=== PATIENT | female | born 1940 | race Caucasian/White ===

== ENCOUNTER 2019-12-16 22:56 | Emergency (ER) | payer MEDICARE, SELFPAY ==
--- NOTE | ~2019-12-16 | XR_ITS ---
EXAMINATION: XR chest 2V DATE: 12/16/2019 23:21 INDICATION: Cough TECHNIQUE: PA and lateral views of the chest are obtained. COMPARISON: 07/30/2017 FINDINGS: The lungs are free of acute opacities. There is no pleural effusion or pneumothorax. The ca rdiomediastinal silhouette is normal. There are bridging osteophytes at multiple levels in the spine, consistent with diffuse idiopathic skeletal hyperostosis (DISH). IMPRESSION: 1. No acute cardiopulmonary abnormality. Reviewed, dictated and finalized at location A. NICAL SALES SUPPORT SPECIALIST
[2019-12-16 22:59] VITALS: BP 146/64; PULSE 64; RESP 16; TEMP 36.4; O2SAT 97
--- NOTE | 2019-12-16 23:06 | ED.GENADULT ---
HPI - General Adult General Chief complaint: Upper Respiratory Infection Stated complaint: SEVERE COUGH Time Seen by Provider: 12/16/19 23:06 Source: patient Mode of arrival: ambulatory Limitations: no limitations History of Present Illness HPI narrative: Patient presents for evaluation of cough. Patient reports a 3-week history of worsening productive cough, white sputum production. She denies fever, shortness of breath, chest pain, leg swelling. She reports that she was placed on antibiotics by her primary care provider, finished course of those, and has continued with Delsym and supportive care without much improvement. Patient denies any wheezing. No history of lung disease. She does not smoke. She denies any pain. Patient with numerous recent sick contacts. is not ill with similar symptoms. Related Data Home Medications Medication Instructions Recorded Confirmed atorvastatin 20 mg tablet 20 mg PO DAILY 11/29/19 calcium citrate 250 mg PO DAILY 11/29/19 cetirizine 10 mg tablet 5 mg PO DAILY PRN 11/29/19 cholecalciferol (vitamin D3) 10 400 unit PO DAILY 11/29/19 mcg (400 unit) capsule furosemide 40 mg tablet 40 mg PO BID 11/29/19 insulin detemir U-100 100 unit/mL 100 unit SUB-Q DAILY 11/29/19 subcutaneous solution [id number] 1 tablet PO DAILY 11/29/19 Allergies Allergy/AdvReac Type Severity Reaction Status Date / Time No Known Allergies Allergy Verified 12/16/19 23:14 Review of Systems Review of Systems: Narrative: CONSTITUTIONAL: Denies fever, chills, or sweats. ENT: Reports rhinorrhea, congestion, denies sore throat or otalgia CARDIOVASCULAR: Denies chest pain, palpitations, or edema. RESPIRATORY: Reports cough, denies shortness of breath GASTROINTESTINAL: Denies abdominal pain, nausea, vomiting, or diarrhea. MUSCULOSKELETAL: Denies back pain, joint pain, or myalgia. NEUROLOGIC: Denies weakness. [facility] Past Medical History Medical History Bronchitis CKD (chronic kidney disease), stage II Knee pain, left Tachycardia Social History Social History Smoking status: Never smoker Alcohol intake: never Gender identity (if verbalized by the patient): Female Exam Narrative: Exam Narrative: GENERAL: Well-appearing, well-nourished, and in no acute distress. HEAD: Normocephalic, atraumatic. EYES: PERRLA and EOMI. ENT: Nares clear, no rhinorrhea or epistaxis. Mucous membranes moist. NECK: Supple. CHEST: No respiratory distress, no tachypnea. No increased work of breathing. Faint crackles left middle lung. Right lung sounds are clear. No wheezing. HEART: Regular rate and rhythm. No murmur heard. Normal peripheral pulses. ABDOMEN: Soft, nontender, nondistended, normal active bowel sounds. EXTREMITIES: Normal range of motion. No edema. SKIN: Warm, dry, no rash. NEURO: No focal deficits. Alert and oriented x3 Course Course Emergency Course: Patient without evidence of severe respiratory process. Chest x-ray shows no acute cardiopulmonary abnormality. Patient was given a DuoNeb, given steroids with some improvement in her symptoms. We will start patient on steroids given bronchitis type symptoms. Advised to put a humidifier in her room, try drinks with honey in it to help with cough. Patient without any other concerning features such as chest pain, shortness of breath. She was advised to discussed her symptoms with her primary care provider at a follow-up appointment. She was then discharged home. Vital Signs Vital signs: Vital Signs Temperature 36.4 C L 12/16/19 22:59 Pulse Rate 64 12/16/19 22:59 Respiratory Rate 16 12/16/19 22:59 Blood Pressure 146/64 H 12/16/19 22:59 Pulse Oximetry 97 12/16/19 22:59 Temperature 36.4 C L 12/16/19 22:59 Pulse Rate 59 L 12/16/19 23:52 Respiratory Rate 16 12/16/19 23:52 Blood Pressure 146/64 H
[2019-12-16 23:36] LABS: Basophils Absolute Auto 0.1 K/mm3 (0.0-0.1); Basophils Percent Auto 0.9 % (0.2-1.2); Eosinophils Absolute Auto 0.3 K/mm3 (0-0.3); Eosinophils Percent Auto 4.8 % (0-4.4); Hematocrit 38.9 % (37.0-47.0); Hemoglobin 12.3 g/dL (12.0-15.0); Immature Granulocyte Absolute 0.01 K/mm3 (0.00-0.031); Immature Granulocyte Percent A 0.1 % (0-0.5); Lymphocytes Absolute Auto 1.78 K/mm3 (0.9-3.2); Lymphocytes Percent Auto 26.6 % (18.3-44.2); Mean Corpuscular HGB Conc 31.6 g/dl (32-36); Mean Corpuscular Hemoglobin 27.8 pg (26-34); Mean Platelet Volume 9.6 fl (7.4-10.4); Monocytes Absolute Auto 0.6 K/mm3 (0.1-0.6); Monocytes Percent Auto 8.5 % (2.6-8.5); Neutrophils Percent Auto 59.1 % (45.5-73.1); Platelet Count Result 153 k/mm3 (150-375); Red Blood Count 4.42 M/mm3 (4.2-5.4); Red Cell Distribution Width 12.6 % (11.5-14.5); White Blood Count 6.7 K/mm3 (4.5-10.0)
[2019-12-16] MEDS: ALBUTEROL SULFATE NEB 2.5 MG/0.5 ML INH 5 MG INHALATION (23:39)
[2019-12-16 23:41] VITALS: PULSE 58; RESP 16
[2019-12-16] MEDS: IPRATROPIUM BR 0.02% INH SOLN 0.5 MG/2.5 ML VIAL INHALATION (23:49)
[2019-12-16 23:52] VITALS: PULSE 59; RESP 16
[2019-12-16 23:52] LABS: Blood Urea Nitrogen 25 mg/dL (7-17); Calcium 9.8 mg/dL (8.4-10.2); Carbon Dioxide 25 mmol/L (22-30); Chloride 99 mmol/L (98-107); Estimated CRCL calculation 38 ml/min; Estimated Glomerular Filt Rate 36; Glucose 149 mg/dL (65-105); Potassium 3.5 mmol/L (3.4-5.0); Sodium 139 mmol/L (137-145)
== END 2019-12-17 00:10 | disposition home or self-care (01) ==
PROVIDERS: Emergency Provider Emergency Medicine; PCP Internal Medicine
DX: J40 Bronchitis, not specified as acute or chronic (principal); N18.3 Chronic kidney disease, stage 3 (moderate)
CPT/HCPCS: 36415; 71046; 80048; 85025; 87804; 94640; 99283

== ENCOUNTER 2019-12-30 08:11 | Inpatient (IN) | payer MEDICARE, SELFPAY ==
[2019-12-30] VITALS (13 sets, daily range): BP systolic 111–191; BP diastolic 40–81; PULSE 52–73; RESP 16–56; TEMP 36.4–36.7; O2SAT 96–100; BMI 41.4
--- NOTE | ~2019-12-30 | XR_ITS ---
EXAMINATION: XR chest 2V DATE: 12/30/2019 10:29 INDICATION: Transient alteration of awareness TECHNIQUE: Frontal and lateral views of the chest are obtained COMPARISON: 12/16/2019 FINDINGS: The lungs are free of acute opacities. There is no pleural effusion or pneumothorax. The ca rdiomediastinal silhouette is normal. There are bridging osteophytes at multiple levels in the spine, consistent with diffuse idiopathic skeletal hyperostosis (DISH). Surgical clips in the right upper q uadrant are likely from prior cholecystectomy. 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 IMPRESSION: 1. No acute cardiopulmonary abnormality. Reviewed, dictated and finalized at location A. RGLASSER
--- NOTE | ~2019-12-30 | CT_ITS ---
EXAMINATION: CT brain wo con EXAM DATE: 12/30/2019 09:15 INDICATION: Syncope. Temporary change in awareness. Fall, loss of consciousness. TECHNIQUE: Spiral CT of the head was performed without contrast. Axial, coronal and sagittal images were reviewed. The dose-length product (DLP) for this examination was 605.33 mGy-cm. The exposure w as tailored according to patient size, and iterative reconstruction (ASIR) was used as additional dos e reduction technique. Comparison is made to prior examination from 04/06/2017. FINDINGS: There is no acute intraparenchymal hemorrhage. No evidence of intraparenchymal brain mass lesion. No evidence of acute infarction. There is no mass effect or midline shift. The ventricles are normal in size. There are no extra-axial collections. There are no acute calvarial fractures. P atient has had bilateral ocular lens surgery. There is bilateral carotid siphon arterial sclerosis. M ild cerebral atrophy. Soft tissue is unremarkable. The visualized sinuses and mastoid air cells are well aerated. IMPRESSION: 1. No acute intracranial findings. Reviewed, dictated and finalized at location B. MOSPRAY OPERATOR
--- NOTE | ~2019-12-30 | US_ITS ---
EXAMINATION: US venous doppler LE EXAM DATE: 12/30/2019 12:14 INDICATION: Pulmonary embolism. TECHNIQUE: Multiple grayscale, color flow and Doppler images of the lower extremity deep venous syste ms bilaterally were obtained and reviewed. Comparison is made to prior examination from 05/01/2015. FINDINGS: Right side: The right common femoral, femoral and profunda veins demonstrate normal color flow, respi ratory variation, augmentation and compressibility. Compressibility, color flow confirmed within the right popliteal, posterior tibial, peroneal, and greater saphenous veins. Left side: The left common femoral, femoral and profunda veins demonstrate normal color flow, respira tory variation, augmentation and compressibility. Compressibility, color flow confirmed within the l eft popliteal, posterior tibial, peroneal, and greater saphenous veins. IMPRESSION: 1. No lower extremity deep venous thrombosis bilaterally. Reviewed, dictated and finalized at location B. R RUNNER
--- NOTE | ~2019-12-30 | US_ITS ---
EXAMINATION: US carotid duplex BI DATE: 12/31/2019 14:50 INDICATION: Syncope. TECHNIQUE: Grayscale, color Doppler, and pulsed Doppler images of the cervical carotid arteries were obtained. The degree of vessel stenosis is placed in one of the following categories: normal, <50%, 5 0-69%, >=70% but less than near-occlusion, near-occlusion, or total occlusion. Note that percent sten osis relative to normal distal artery lumen diameter is indirectly measured from velocity measurement s as described by Denny, et al. Radiology 2003; 229:340-346. COMPARISON: None. FINDINGS: RIGHT: The right common carotid artery (CCA) peak systolic velocity (PSV) is 103 cm/s. The right internal ca rotid artery (ICA) PSV is 109 cm/s. The right ICA end-diastolic velocity (EDV) is 23 cm/s. The right ICA/CCA PSV ratio is 1.1. Grayscale and color Doppler images yield an estimate of <50% diameter reduc tion from plaque in the ICA. There is antegrade flow in the right vertebral artery. LEFT: The left CCA PSV is 89 cm/s. The left ICA PSV is 126 cm/s. The left ICA EDV is 29 cm/s. The left ICA/ CCA PSV ratio is 1.4. Grayscale and color Doppler images yield an estimate of <50% diameter reduction from plaque in the ICA. There is antegrade flow in the left vertebral artery. IMPRESSION: 1. <50% stenosis in the right internal carotid artery. 2. <50% stenosis in the left internal carotid artery. Reviewed, dictated and finalized at location A. RT COORDINATOR
--- NOTE | ~2019-12-30 | CT_ITS ---
EXAMINATION: CTA chest PE protocol EXAM DATE: 12/30/2019 11:32 INDICATION: Elevated d-dimer. Syncope. TECHNIQUE: Spiral CTA of the chest (pulmonary arteries) was performed with 100 cc Omnipaque 350 intr avenous contrast injection. Images were acquired during the pulmonary arterial phase. Coronal maxi mum intensity projection 3D-reconstructions were created by the technologist on dedicated workstation . Axial, coronal and sagittal reformatted images were reviewed. The dose-length product (DLP) for t his examination was 895.24 mGy-cm. The exposure was tailored according to patient size (auto mA exp osure control), and iterative reconstruction (ASIR) was used as additional dose reduction technique. There is no prior study for comparison. FINDINGS: There is left lower lobe small medial segmental pulmonary embolism, low clot burden. No t horacic aortic dissection. Small amount of bilateral lower lobe atelectasis. There are no pleural o r pericardial effusions. Tracheobronchial tree is patent. There is no mediastinal, hilar or axill jesica lymphadenopathy. There is no pneumothorax. Heart normal in size. There is mild coronary art erial calcification, arterial sclerosis. There is small mild thyromegaly. sliding gastroesophageal hi atal hernia. Fluid density lesion superior pole of left kidney, imaged portion is consistent with a cyst measuring 5 cm. There are cholecystectomy clips. Patient has diffuse idiopathic skeletal hyper ostosis (DISH). IMPRESSION: 1. Left lower lobe medial segmental pulmonary embolism. 2. Bibasilar subsegmental atelectasis. I discussed this case with Norberto Kulkarni PA-C at 12/30/2019 11:41 SENIOR ANALYST MARKET INTELLIGENCE. 1. Reviewed, dictated and finalized at location B. OR ANALYST MARKET INTELLIGENCE
--- NOTE | ~2019-12-30 | NM_ITS ---
EXAMINATION: NM jim stress w perfusion DATE: 01/02/2020 09:49 INDICATION: Abnormal electrocardiogram. Syncope. TECHNIQUE: Rest images were obtained following intravenous administration of 10.4 mCi Tc99m tetrofosm in (Myoview). The patient was infused intravenously with Lexiscan (regadenoson). Then, 31.8 mCi Tc99m tetrofosmin (Myoview) was administered intravenously, and stress images were obtained. Data was tomás nstructed into short axis and horizontal and vertical long axis SPECT images. Gated SPECT images were also obtained. COMPARISON: Chest CT 12/30/2019 FINDINGS: There is a small, mild, fixed perfusion defect involving mid inferior segment of left ventr icle, consistent with infarct. No reversible component to suggest ischemia. There is no segmental wa ll motion abnormality. Left ventricular ejection fraction measures >70%. IMPRESSION: 1. 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 2. Normal left ventricular ejection fraction measuring >70%. Reviewed, dictated and finalized at location A. AST REGULATOR OPERATOR
--- NOTE | ~2019-12-30 | CT_ITS ---
EXAMINATION: CT cervical spine wo con EXAM DATE: 12/30/2019 10:23 INDICATION: Initial encounter following injury, with pain of the neck. Fall. Syncope. TECHNIQUE: Spiral CT of the cervical spine was performed without contrast. Axial images were reviewe d. Coronal and sagittal reformatted images were also reviewed. The dose-length product (DLP) for thi s examination was 413.06 mGy-cm. The exposure was tailored according to patient size (auto mA exposu re control), and iterative reconstruction (ASIR) was used as additional dose reduction technique. Th ere is no prior study for comparison. FINDINGS: There are moderate-sized thoracic bridging endplate osteophytes. Overall moderate cervical spondylosis. There is no evidence of acute cervical fracture. The odontoid process is intact. Pre-d ens space is normal. Prevertebral soft tissue is normal. There are no soft tissue abnormalities clinton ntified. There is no disc space widening or traumatic vertebral body subluxation suspected. Vertebr al body and disc heights are well-maintained. A detailed level by level evaluation of spondylosis c an be added as addendum if requested. IMPRESSION: 1. No acute cervical fracture. 2. Moderate cervical spondylosis. Reviewed, dictated and finalized at location B. FARMER
--- NOTE | ~2019-12-30 | MR_ITS ---
EXAMINATION: MR brain/brain stem wo con DATE: 01/01/2020 08:16 INDICATION: Syncope. TECHNIQUE: Magnetic resonance imaging (MRI) of the brain and brainstem was performed without intraven ous contrast. Sequences included sagittal and axial T1-weighted FSE, axial diffusion-weighted FS EPI, axial T2*-weighted GRE, axial T2-weighted FLAIR Propeller, and axial T2-weighted Propeller. Apparent diffusion coefficient (ADC) maps were created. COMPARISON: Head CT 12/30/2019 FINDINGS: There are scattered areas of nonspecific increased T2-weighted signal intensity in the cere bral white matter, which is within normal limits for the patient's age. There is no intracranial hemo rrhage, acute infarction, or abnormal intracranial mass lesion. The ventricles are normal in size. Th ere is mild mucosal thickening in the paranasal sinuses. There are likely changes of ocular lens repl acement surgeries. The mastoid air cells are normal. IMPRESSION: 1. Normal aging brain. Reviewed, dictated and finalized at location A. LE FIBER WASHER IMPRESSION: 1. Normal aging brain.
--- NOTE | 2019-12-30 08:50 | ECG_ITS ---
Measurements Intervals [place] Rate: 53 P: 56 TX: 210 QRS: -7 QRSD: 77 T: 8 QT: 403 QTc: 379 Interpretive Statements SINUS BRADYCARDIA WITH FIRST DEGREE AV BLOCK LOW QRS VOLTAGE IN PRECORDIAL LEADS INFERIOR INFARCT, AGE INDETERMINATE BASELINE ARTIFACT- I, II, III, AVR, AVL, AVF ABNORMAL ECG Electronically Signed On 12-30-2019 9:46:36 CASING FINISHER AND STUFFER by Adair Still D.O.
[2019-12-30 09:04] LABS: Basophils Absolute Auto 0.1 K/mm3 (0.0-0.1); Basophils Percent Auto 0.5 % (0.2-1.2); Eosinophils Absolute Auto 0.3 K/mm3 (0-0.3); Eosinophils Percent Auto 2.9 % (0-4.4); Hematocrit 41.2 % (37.0-47.0); Hemoglobin 12.8 g/dL (12.0-15.0); Immature Granulocyte Absolute 0.05 K/mm3 (0.00-0.031); Immature Granulocyte Percent A 0.5 % (0-0.5); Immature Platelet Fraction Pct 1.8 % (0.9-11.2); Lymphocytes Absolute Auto 1.11 K/mm3 (0.9-3.2); Lymphocytes Percent Auto 11.5 % (18.3-44.2); Mean Corpuscular HGB Conc 31.1 g/dl (32-36); Mean Corpuscular Hemoglobin 27.8 pg (26-34); Mean Corpuscular Volume 89.6 fl (80-100); Mean Platelet Volume 10.7 fl (7.4-10.4); Monocytes Absolute Auto 0.6 K/mm3 (0.1-0.6); Neutrophils Absolute Auto 7.6 K/mm3 (1.3-6.7); Neutrophils Percent Auto 78.6 % (45.5-73.1); Platelet Count Result 111 k/mm3 (150-375); Red Cell Distribution Width 13.2 % (11.5-14.5); White Blood Count 9.7 K/mm3 (4.5-10.0)
--- NOTE | 2019-12-30 09:13 | PC.NURSE ---
PT TO CT PER QASIM RIVAS.
[2019-12-30 09:14] LABS: Blood Urea Nitrogen 22 mg/dL (7-17); Calcium 9.6 mg/dL (8.4-10.2); Carbon Dioxide 29 mmol/L (22-30); Chloride 102 mmol/L (98-107); Estimated CRCL calculation 37 ml/min; Estimated Glomerular Filt Rate 40; Glucose 210 mg/dL (65-105); Potassium 3.7 mmol/L (3.4-5.0); Sodium 139 mmol/L (137-145)
[2019-12-30 09:29] LABS: Add Urine Microscopic? YES; Appearance Urine Clear (Clear); Bacteria Urine Trace /hpf; Bilirubin Urine Negative (Negative); Blood Urine Negative (Negative); Color Urine Straw (Yellow); Glucose Urine UA Negative (Negative); Ketones Urine Negative (Negative); Leukocyte Esterase Ur Negative LEU/UL (Negative); Mucus Urine Rare /lpf; Nitrate Urine Negative (Negative); Protein Urine Negative (Negative); RBC Urine 0-2 /hpf (0-2); Specific Grav Ur 1.009 (1.001-1.035); Squamous Epithelial Cell Urine Moderate /hpf (Few); Urobilinogen Urine Negative mg/dL (<2.0); WBC Urine 0-3 /hpf
--- NOTE | 2019-12-30 10:14 | ED.GENADULT ---
HPI - General Adult General Chief complaint: Syncope Stated complaint: Syncopal x 2 this Time Seen by Provider: 12/30/19 09:56 Source: patient Mode of arrival: ambulatory Limitations: no limitations History of Present Illness HPI narrative: Patient is a 79-year-old female who presents to emergency department for evaluation of syncopal episode that occurred this morning patient was taking her medications when she had a syncopal episode patient notes that she struck the head her got to her immediately and believes that she was only unconscious for a short period of time patient know she had a near syncopal episode over the weekend on Monday while getting out of bed but did not completely pass out patient denies similar occurrence in the past on arrival patient notes mild pain to the posterior head and neck denies other complaints notes that she did recently get over an upper respiratory infection and is denying any chest pain shortness of breath abdominal pain or other complaints and on arrival is resting comfortably in the room in no distress Related Data Home Medications Medication Instructions Recorded Confirmed atorvastatin 20 mg tablet 20 mg PO DAILY 11/29/19 calcium citrate 250 mg PO DAILY 11/29/19 cetirizine 10 mg tablet 5 mg PO DAILY PRN 11/29/19 cholecalciferol (vitamin D3) 10 400 unit PO DAILY 11/29/19 mcg (400 unit) capsule furosemide 40 mg tablet 40 mg PO BID 11/29/19 insulin detemir U-100 100 unit/mL 100 unit SUB-Q DAILY 11/29/19 subcutaneous solution [id number] 1 tablet PO DAILY 11/29/19 cefdinir 300 mg PO Q12H 12/30/19 furosemide 80 mg PO DAILY 12/30/19 Allergies Allergy/AdvReac Type Severity Reaction Status Date / Time No Known Allergies Allergy Verified 12/18/19 07:22 Review of Systems Review of Systems: All systems reviewed & are unremarkable except as noted in HPI and below PMFSH Past Medical History Medical History Bronchitis Cholecystectomy planned CKD (chronic kidney disease), stage II Knee pain, left Tachycardia Tonsillectomy planned Surgical History Surgical History H/O arthroscopy of knee H/O: hysterectomy Social History Social History Smoking status: Never smoker Alcohol intake: never Gender identity (if verbalized by the patient): Female Exam Narrative: Exam Narrative: GENERAL: Well-appearing, obese, and in no acute distress. HEAD: Normocephalic, hematoma to the posterior scalp EYES: PERRLA and EOMI. ENT: Nares clear, no rhinorrhea or epistaxis. Mucous membranes moist. Oropharynx without tonsillar hypertrophy exudate or other lesions. NECK: Supple. No adenopathy or masses. No carotid bruits or JVD CHEST: Clear to auscultation. No respiratory distress. No wheezes rales or rhonchi HEART: Regular rate and rhythm. No murmur heard. Normal peripheral pulses. ABDOMEN: Soft, nontender, nondistended EXTREMITIES: Normal range of motion. No edema. No midline cervical thoracic or lumbar tenderness SKIN: Warm, dry, no rash. NEURO: No focal deficits. Alert and oriented x3. Cranial nerves II through XII grossly intact. Normal speech. Motor and sensory intact and symmetrical in the extremities PSYCH: Normal mood and affect. Course Course Emergency Course: Patient in the room aware of case findings treatment plan and diagnosis agreeing to stay in hospital is in the room nontoxic appearing afebrile resting comfortably agreeing to stay in hospital Consultations Consultation #1: Discussed case with hospitalist who is agreed to accept the patient would like the patient to be given heparin for anticoagulation Date: 12/30/19 Vital Signs Vital signs: Vital Signs Temperature 97.9 F 12/30/19 08:39 Pulse Rate 60 12/30/19 08:39 Respiratory Rate 16 12/30/19 08:39 Blo
--- NOTE | 2019-12-30 10:24 | PC.NURSE ---
called lab to add on the D Dimer and Trop baseline
[2019-12-30] MEDS: SODIUM CHLORIDE 0.9% IV 500 ML 999 ML IV CONT (10:37)
[2019-12-30 10:48] LABS: Troponin I 0.014 ng/mL (0.000-0.034)
[2019-12-30 10:52] LABS: D Dimer 10.77 ug/mL (<0.48)
[2019-12-30 11:34] LABS: Prothrombin Time 13.1 Seconds (11.1-14.7)
--- NOTE | 2019-12-30 11:58 | PC.NURSE ---
PT IN ULTRASOUND AT THIS TIME, PER STRETCHER.
--- NOTE | 2019-12-30 12:52 | PC.NURSE ---
PT TO BATHROOM PER W/C WITH ASSISTANCE OF NURSE.
[2019-12-30] MEDS: HEPARIN SODIUM 5,000 UNITS/ML VIAL 6000 UNITS IV PUSH ×2 (12:58→20:19)
[2019-12-30] MEDS: HEPARIN SOD/D5W 100 UNITS/ML 25,000 UNITS/250 ML BAG 13 UNITS IV CONT (12:59)
--- NOTE | 2019-12-30 13:28 | ADMGEN ---
This patient, Trudy Hawthorne, was admitted to -. Patient/family oriented to hospital policies and general routines including ID bracelet, bed and alarms, visiting hours, pain management, procedures, bathroom and other care routines, personal items, smoking policy, room service/diet, and visiting hours. Valuables list has been completed. Information on how to activate the Rapid Response Team has been discussed. Patient/Family are encouraged to report perceived risks to care and to ask questions if they do not understand what they are told or what they should do.
--- NOTE | 2019-12-30 15:00 | PM.IMHP ---
H&P: HPI History of Present Illness Chief complaint: Syncopal episode. Narrative: Trudy Hawthorne is a 79-year-old female with hypertension, hyperlipidemia, type 2 diabetes mellitus, and chronic kidney disease stage 3 who presented to the emergency department earlier this morning via private vehicle from home for evaluation of a syncopal episode. Not long prior to arrival, she was standing in the kitchen swallowing a pill and then she is waking up on the floor. Her heard her fall, and notes that she was alert on his arrival to the room although a bit confused as to what had transpired. She does remember feeling the need to cough prior to losing consciousness, as she thought she took too big of a drink while taking the pill. She adamantly denies feelings of choking or coughing prior to the episode and she also denies feeling lightheaded or dizzy. On Monday evening, she does mention having a spell where she felt lightheaded after getting out of bed to retrieve a blanket. At that time, she did fall forward and onto her knees but denies having loss of consciousness with that fall. She was found to have a left lower lobe medial segmental pulmonary embolism on chest CTA with venous Doppler ultrasound showing no evidence of DVT. With further questioning, she denies shortness of breath, chest pain, and pleuritic pain. She has chronic lower extremity edema, which is unchanged. She has not had recent travel and denies history of venous thromboembolism. 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 Weight has remained stable. She has never had an abnormal mammogram. She has never had a colonoscopy. No melena or hematochezia. Review of Systems Review of Systems: Narrative: Twelve systems were reviewed with pertinent positives and negatives as per HPI. No fever, chills, or sweats. She recently had sinusitis and bronchitis, treated with antibiotics and steroids. All of those symptoms have since resolved. No nausea or vomiting. She denies auditory and visual changes. No focal weakness or paresthesias. She believes her diabetes is well controlled, reports a fasting glucose of 155 this morning. She has no history of sleep apnea, but says that many nights she does not sleep well for unclear reasons. Her says she snores significantly, but he has not witnessed any apneic episodes. Except as documented, all other systems were reviewed and are negative. [facility] Past Medical History Medical History (Updated 12/30/19 @ 18:31 by Brigid Guevara PA-C) Chronic edema Chronic kidney disease, stage 3 Baseline creatinine is around 1.40. Dyslipidemia GERD (gastroesophageal reflux disease) Hypertension Insulin dependent type 2 diabetes mellitus Hemoglobin A1c was 6.9% in October 2018. Osteoporosis Surgical History Surgical History (Updated 12/30/19 @ 18:26 by Brigid Guevara PA-C) History of incisional hernia repair Status post cataract extraction Status post cholecystectomy Status post hysterectomy Family History Family History Father Acute myocardial infarction Social History Social History (Updated 12/30/19 @ 18:21 by Brigid Guevara PA-C) Social History: The patient is and she lives in [place] with her of 60 years. 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 She designates her Vin as her surrogate decision maker and she wishes to be a full code. She is a lifelong nonsmoker and denies alcohol and drug abuse. Spiritual care concerns: No Agree to blood products: Yes Meds Home Medications and Allergies Home Medications Medication Instructions Recorded Confirmed Type carvedilol 12.5 mg tablet 12.5 mg PO BID #180 tablet 11/18/19 12/30/19 Rx atorvastatin 20 mg tablet 20 mg PO DAILY 11/29/19 12/30/19 History calcium citrate 250 mg PO DAILY
[2019-12-30] MEDS: LACTATED RINGERS 1,000 ML 75 ML IV CONT (15:06)
[2019-12-30 15:30] LABS: Glucose Point of Care 118 (65-105)
[2019-12-30 20:08] LABS: INR 1.2; Prothrombin Time 14.4 Seconds (11.1-14.7)
[2019-12-30 20:35] LABS: Glucose Point of Care 240 (65-105)
[2019-12-31] VITALS (14 sets, daily range): BP systolic 104–153; BP diastolic 47–70; PULSE 54–76; RESP 16–98; TEMP 36.6–37.5; O2SAT 95–98
--- NOTE | 2019-12-31 | ECHO_ITS ---
Patient Info Name: Trudy Hawthorne Age: 79 years : 1940 Gender: Female Ht: 63 in Wt: 234 lbs BSA: 2.23 m2 HR: 67 bpm BP: 124 / 49 mmHg Heart Rhythm: Sinus Rhythm Technical Quality: Fair Exam Date: 12/31/2019 9:58 AM Exam Location: [facility] Patient Status: Inpatient Admit Date: 12/30/2019 Staff Ordering Physician: Brigid Guevara PA-C Gas Plant Dispatcher: Bull Navarro RDCS Attending Provider: Duran Colón MD Referring Physician: Paola ABDI; Exam Type: CA echo doppler color flow Study Info Indications R55 - Syncope and collapse Complete two-dimensional, color flow and Doppler transthoracic echocardiogram is performed. Strain analysis performed. History/Risk Factors Syncope and collapse; pulmonary embolism, HTN, DM2, CKD3. Summary 1. Left ventricular chamber dimension is normal. 2. Left ventricular systolic function is normal, estimated at 60-65%. 3. There is mildly increased left ventricular wall thickness. 4. The left ventricular diastolic function is grade I diastolic dysfunction. 5. E/e' 7 is not elevated. 6. Global longitudinal strain is normal at -17.5%. 7. Lipomatous interatrial septum. 8. The mitral valve has moderately calcified annulus. 9. There is trace tricuspid valve regurgitation. 10. No pulmonary hypertension, estimated pulmonary arterial systolic pressure is 30 mmHg. Left Ventricle E/e' 7 is not elevated. Global longitudinal strain is normal at -17.5%. Left ventricular chamber dimension is normal. Left ventricular systolic function is normal, estimated at 60-65%. There is mildly increased left ventricular wall thickness. The left ventricular diastolic function is grade I diastolic dysfunction. Right Ventricle Right ventricular chamber dimension is normal. Right ventricular systolic function is normal. Left Atria Left atrial chamber dimension is normal. Right Atria Right atrial chamber dimension is normal. Atrial Septum Lipomatous interatrial septum. Aortic Valve Cannot determine number of aortic valve leaflets. The aortic valve is not well visualized. There is no aortic valve stenosis. There is no aortic valve regurgitation. Pulmonic Valve There is no pulmonic regurgitation. Mitral Valve The mitral valve has moderately calcified annulus. There is no mitral valve stenosis. There is no mitral valve regurgitation. Tricuspid Valve There is trace tricuspid valve regurgitation. No pulmonary hypertension, estimated pulmonary arterial systolic pressure is 30 mmHg. Pericardium/Pleural There is no pericardial effusion. Inferior Vena Cava Normal inferior vena cava with >50% collapse upon inspiration consistent with normal right atrial pressure, 5 mmHg. Aorta The aortic root size at the sinus of Valsalva is not well visualized. Left Ventricular Outflow Tract Name Value Normal LVOT 2D LVOT Diameter 2.0 cm LVOT Doppler LVOT Peak Gradient 8 mmHg LVOT Mean Gradient 4 mmHg LVOT VTI 26 cm LVOT VTI/AV VTI Ratio
[2019-12-31 02:24] LABS: Hemoglobin 12.2 g/dL (12.0-15.0); Immature Platelet Fraction Pct 1.4 % (0.9-11.2); Mean Corpuscular HGB Conc 31.3 g/dl (32-36); Mean Corpuscular Hemoglobin 27.5 pg (26-34); Mean Corpuscular Volume 87.8 fl (80-100); Platelet Count Result 107 k/mm3 (150-375); Red Blood Count 4.44 M/mm3 (4.2-5.4)
[2019-12-31 02:42] LABS: Blood Urea Nitrogen 17 mg/dL (7-17); Calcium 9.6 mg/dL (8.4-10.2); Carbon Dioxide 28 mmol/L (22-30); Chloride 103 mmol/L (98-107); Estimated CRCL calculation 37 ml/min; Estimated Glomerular Filt Rate 40; Glucose 137 mg/dL (65-105); Potassium 3.4 mmol/L (3.4-5.0); Sodium 138 mmol/L (137-145)
[2019-12-31 03:03] LABS: Partial Thromboplastin Time > 200.0 SECONDS (22.3-36.8)
--- NOTE | 2019-12-31 05:38 | PCRCNOTE ---
Patient was supposed to get a apnea link done 12/30/19. It was not done due to the RN stating he would have to be in patient's room several times that night. It will be done tonight 12/31/19.
[2019-12-31 08:35] LABS: Glucose Point of Care 199 (65-105)
[2019-12-31] MEDS: ATORVASTATIN 20 MG TABLET PO (10:40)
[2019-12-31] MEDS: LOSARTAN POTASSIUM 100 MG TABLET PO (10:40)
[2019-12-31] MEDS: carvediloL 12.5 MG TABLET PO ×2 (10:40→17:32)
[2019-12-31] MEDS: CHOLECALCIFEROL 400 UNITS TABLET (VIT D) PO (10:40)
[2019-12-31] MEDS: FUROSEMIDE 40 MG TABLET PO (10:40)
[2019-12-31] MEDS: POTASSIUM CHLORIDE 10 MEQ TABLET.ER PO (10:40)
[2019-12-31] MEDS: OPTI-GEN TAB 1 TABLET PO (10:40)
[2019-12-31] MEDS: INSULIN DETEMIR 100 UNITS/ML 30 UNITS SUB-Q (10:44)
[2019-12-31 10:57] LABS: Partial Thromboplastin Time > 200.0 SECONDS (22.3-36.8)
[2019-12-31] MEDS: HEPARIN SOD/D5W 100 UNITS/ML 25,000 UNITS/250 ML BAG 12 UNITS IV CONT (12:30)
[2019-12-31 13:15] LABS: Glucose Point of Care 180 (65-105)
--- NOTE | 2019-12-31 16:57 | P.PNIM_ITS ---
Progress Note: A&P Assessment and Plan (1) Syncope: Code(s): R55 - Syncope and collapse Status: Acute Assessment and Plan: * PE is one possible etiology although the PE is small. Pt also reports that the syncopal episode occurred after she swallowed a pill and felt the need to cough, prompting her to take a drink so vasovagal episode is included in the ddx. * Orthostatic BP measurements reviewed from today without evidence of orthostatic hypotension today. Per ER notes, the pt exhibited orthostatic hypotension at presentation. Continue monitoring orthostatic BP. The pt does report an episode of lightheadedness with standing on Monday,.suggestive of orthostasis. * Continue telemetry * Echocardiogram without evidence of critical valvular pathology. She does have grade 1 diastolic dysfunction, trace mild tricuspid regurgitation, and EF 60- 65%. * CT brain wo contrast without acute ischemia, mass lesion, or hemorrhage. Will order brain MRI. * Pt has tongue ecchymosis suspicious for tongue biting. Will perform EEG. The pt denies hx of seizures. denies witnessed myclonic jerks, shaking, and body movements. (2) Minor closed head injury: Code(s): S00.90XA - Unspecified superficial injury of unspecified part of head, initial encounter Status: Acute Assessment and Plan: * Secondary to syncopal episode * The pt has bruising to the tongue * The patient exhibits no focal neurologic deficits. Continue neuro checks Q4HR. * Continue fall precautions * Continue to monitor (3) Pulmonary embolism on left: Code(s): I26.99 - Other pulmonary embolism without acute cor pulmonale Status: Acute Assessment and Plan: * Heparin gtt will be switched to PO eliquis. Care coordination confirmed that eliquis is covered by insurance. * Venous Doppler ultrasounds were negative for DVT although DVT is a likely etiology for PE given her significant edema and sedentary lifestyle. (4) Thrombocytopenia: Code(s): D69.6 - Thrombocytopenia, unspecified Status: Acute Assessment and Plan: * Platelet count 107,000 today while on heparin gtt * Heparin gtt will be switched to PO eliquis for discharge preparation * Pt will need follow-up outpatient to ensure platelet count returns to normal (5) Insulin dependent type 2 diabetes mellitus: Code(s): E11.9 - Type 2 diabetes mellitus without complications; Z79.4 - senior care (current) use of insulin Status: Acute Assessment and Plan: * BP reviewed and are stable * Continue basal insulin * Initiate sliding scale insulin, Accu-Cheks, and hypoglycemic protocol (6) Hypertension: Code(s): I10 - Essential (primary) hypertension Status: Acute Assessment and Plan: * Blood pressures were reviewed and are stable today * Continue ENTERPRISE RECORDS ANALYST antihypertensives carvedilol and losartan (7) Chronic kidney disease, stage 3: Code(s): N18.3 - Chronic kidney disease, stage 3 (moderate) Status: Acute Assessment and Plan: * Creatinine is stable and appears at baseline (8) Suspected sleep apnea: Code(s): R29.818 - Other symptoms and signs involving the nervous system Status: Acute Assessment and Plan: * Suspected due to crowded oropharynx, the patient's weight, poor sleep habits, and snoring * Apnea link was ordered but was not performed yet. It will be performed tonight. * Echo revealed no evidence of pulmon
--- NOTE | 2019-12-31 16:57 | PM.IMPN ---
Progress Note: A&P Assessment and Plan (1) Syncope: Code(s): R55 - Syncope and collapse Status: Acute Assessment and Plan: PE is one possible etiology although the PE is small. Pt also reports that the syncopal episode occurred after she swallowed a pill and felt the need to cough, prompting her to take a drink so vasovagal episode is included in the ddx. Orthostatic BP measurements reviewed from today without evidence of orthostatic hypotension today. Per ER notes, the pt exhibited orthostatic hypotension at presentation. Continue monitoring orthostatic BP. The pt does report an episode of lightheadedness with standing on Monday,.suggestive of orthostasis. Continue telemetry Echocardiogram without evidence of critical valvular pathology. She does have grade 1 diastolic dysfunction, trace mild tricuspid regurgitation, and EF 60-65%. CT brain wo contrast without acute ischemia, mass lesion, or hemorrhage. Will order brain MRI. Pt has tongue ecchymosis suspicious for tongue biting. Will perform EEG. The pt denies hx of seizures. denies witnessed myclonic jerks, shaking, and body movements. (2) Minor closed head injury: Code(s): S00.90XA - Unspecified superficial injury of unspecified part of head, initial encounter Status: Acute Assessment and Plan: Secondary to syncopal episode The pt has bruising to the tongue The patient exhibits no focal neurologic deficits. Continue neuro checks Q4HR. Continue fall precautions Continue to monitor (3) Pulmonary embolism on left: Code(s): I26.99 - Other pulmonary embolism without acute cor pulmonale Status: Acute Assessment and Plan: Heparin gtt will be switched to PO eliquis. Care coordination confirmed that eliquis is covered by insurance. Venous Doppler ultrasounds were negative for DVT although DVT is a likely etiology for PE given her significant edema and sedentary lifestyle. (4) Thrombocytopenia: Code(s): D69.6 - Thrombocytopenia, unspecified Status: Acute Assessment and Plan: Platelet count 107,000 today while on heparin gtt Heparin gtt will be switched to PO eliquis for discharge preparation Pt will need follow-up outpatient to ensure platelet count returns to normal (5) Insulin dependent type 2 diabetes mellitus: Code(s): E11.9 - Type 2 diabetes mellitus without complications; Z79.4 - terminologist (current) use of insulin Status: Acute Assessment and Plan: BP reviewed and are stable Continue basal insulin Initiate sliding scale insulin, Accu-Cheks, and hypoglycemic protocol (6) Hypertension: Code(s): I10 - Essential (primary) hypertension Status: Acute Assessment and Plan: Blood pressures were reviewed and are stable today Continue PUBLIC WORKS TECHNICIAN antihypertensives carvedilol and losartan (7) Chronic kidney disease, stage 3: Code(s): N18.3 - Chronic kidney disease, stage 3 (moderate) Status: Acute Assessment and Plan: Creatinine is stable and appears at baseline (8) Suspected sleep apnea: Code(s): R29.818 - Other symptoms and signs involving the nervous system Status: Acute Assessment and Plan: Suspected due to crowded oropharynx, the patient's weight, poor sleep habits, and snoring Apnea link was ordered but was not performed yet. It will be performed tonight. Echo revealed no evidence of pulmonary hypertension Additional Plan DVT Prophylaxis: Pt is on therapeutic anticoagulation for PE Time Spent With Patient Time with patient: 15 - 25 minutes Subjective Date/time seen: 12/31/19 16:57 Interval history: The pt was seen and examined. She is sitting up in her chair with her at the bedside. She reports that she feels well today. She denies lightheadedness, dizziness, and palpitations. She denies chest pain, SOB, and cough. She reports that the area wh
[2019-12-31] MEDS: INSULIN ASPART (*BKC) 100 UNITS/ML SUB-Q (17:32)
[2019-12-31 17:37] LABS: Glucose Point of Care 224 (65-105)
[2019-12-31] MEDS: BENZONATATE 100 MG CAPSULE PO (18:29)
[2019-12-31 19:12] LABS: Partial Thromboplastin Time 84.8 SECONDS (22.3-36.8)
[2019-12-31] MEDS: APIXABAN 5 MG TABLET 10 MG PO (19:35)
[2020-01-01] VITALS (10 sets, daily range): BP systolic 126–161; BP diastolic 45–67; PULSE 56–73; RESP 16–18; TEMP 36.4–36.7; O2SAT 94–98
[2020-01-01 00:35] LABS: Glucose Point of Care 223 (65-105)
[2020-01-01 05:55] LABS: Hematocrit 32.1 % (37.0-47.0); Hemoglobin 10.4 g/dL (12.0-15.0); Mean Corpuscular HGB Conc 32.4 g/dl (32-36); Mean Corpuscular Hemoglobin 28.2 pg (26-34); Mean Platelet Volume 9.8 fl (7.4-10.4); Platelet Count Result 86 k/mm3 (150-375); Red Blood Count 3.69 M/mm3 (4.2-5.4); Red Cell Distribution Width 13.1 % (11.5-14.5); White Blood Count 7.8 K/mm3 (4.5-10.0)
[2020-01-01 06:28] LABS: Blood Urea Nitrogen 19 mg/dL (7-17); Calcium 8.5 mg/dL (8.4-10.2); Carbon Dioxide 29 mmol/L (22-30); Chloride 101 mmol/L (98-107); Estimated CRCL calculation 33 ml/min; Estimated Glomerular Filt Rate 34; Glucose 128 mg/dL (65-105); Potassium 3.4 mmol/L (3.4-5.0); Sodium 140 mmol/L (137-145)
[2020-01-01] MEDS: APIXABAN 5 MG TABLET 10 MG PO ×2 (06:35→19:22)
[2020-01-01 08:34] LABS: Glucose Point of Care 148 (65-105)
[2020-01-01] MEDS: BENZONATATE 100 MG CAPSULE PO ×3 (09:04→17:40)
[2020-01-01] MEDS: CHOLECALCIFEROL 400 UNITS TABLET (VIT D) PO (09:04)
[2020-01-01] MEDS: INSULIN DETEMIR 100 UNITS/ML 30 UNITS SUB-Q (09:05)
[2020-01-01] MEDS: ATORVASTATIN 20 MG TABLET PO (09:05)
[2020-01-01] MEDS: FUROSEMIDE 80 MG TABLET PO (09:05)
[2020-01-01] MEDS: POTASSIUM CHLORIDE 10 MEQ TABLET.ER PO (09:05)
[2020-01-01] MEDS: LOSARTAN POTASSIUM 100 MG TABLET PO (09:05)
[2020-01-01] MEDS: carvediloL 12.5 MG TABLET PO ×2 (09:05→17:40)
--- NOTE | 2020-01-01 12:00 | NEURO_ITS ---
TEST: ELECTROENCEPHALOGRAM DIAGNOSIS: SYNCOPAL EPISODE PATIENT NUMBER: [id number] EEG NUMBER: [id number] RECORDING DATE: 01/01/20 CONDITION OF RECORDING: Drowsy and sleep EEG DESCRIPTION: Basic resting occipital frequency consists of moderate amount of poorly organized low voltage 9-11hz alpha mixed with low voltage 15-18hz beta and intermittent 6-7hz theta activity. Bilateral symmetrical sleep activity is seen during sleep. Hyperventilation and photic stimulation were not done. Nonparoxysmal. Nonfocal. Nonlateralizing. IMPRESSION: Abnormal record due to excessive amount of theta activity during wakefulness but no evidence of paroxysmal activity. Clinical correlation recommended. [facility]
[2020-01-01 12:27] LABS: Glucose Point of Care 240 (65-105)
--- NOTE | 2020-01-01 13:16 | PM.CNCAR ---
Assessment and Plan Assessment and plan (1) Syncope: Code(s): R55 - Syncope and collapse Status: Acute Assessment and Plan: ? Etiology. Certainly pulmonary embolism is an etiology for syncope but her pulmonary embolism is not large. Certainly still a possibility but I a.m. still concerned about other etiologies of her passing out spell. Her aeronautical engineering technologist however does not show any arrhythmia. Echocardiogram was unremarkable. Orthostatic blood pressures were reportedly taken in the emergency room and were abnormal but here in the hospital were normal. Other possibilities do include arrhythmia, orthostasis or vasovagal etiology. Plan is to continue orthostatic blood pressures Q shift. Lexiscan myocardial perfusion study to be ordered. If the patient is discharged this can be done as an outpatient. Thirty day aeronautical engineering technologist as an outpatient. Continue her other home medications without change at this point. Obviously anticoagulation is warranted for treatment of her pulmonary embolism. Eliquis has been chosen Also patient is advised that she should not drive x6 months as workup is still not complete and I am uncertain if her pulmonary embolism is a clear etiology for syncopal episode. (2) Pulmonary embolism on left: Code(s): I26.99 - Other pulmonary embolism without acute cor pulmonale Status: Acute Assessment and Plan: on Eliquis. (3) Hypertension: Code(s): I10 - Essential (primary) hypertension Status: Acute Assessment and Plan: At goal (4) Chronic kidney disease, stage 3: Code(s): N18.3 - Chronic kidney disease, stage 3 (moderate) Status: Acute History of Present Illness History of Present Illness Consult date/time: 01/01/20 13:16 Requesting physician: Cassi Shook PA-C Consult reason: Other ( syncope) Reason For Visit: Syncopal episode. Narrative: date of service 01/01/2020: Patient is a 71-year-old female who passed out. She was brought to the hospital following a syncopal episode. On Monday, 3 days ago, she got up from bed and felt lightheaded and ended up on the and foot of her bed and on her knees. She does not think that she passed out but was dizzy at that time. On Monday she was getting ready for work and took a pill. She then drank another drink of water and then ended up on the floor. She does not remember passing out. She does not remember hitting the floor. Her came and picked her up. There was some minor injuries but patient was alert upon awakening. Patient does not remember having any palpitations at that time has had palpitations in the past. Echocardiogram has been performed and is essentially unremarkable. Sinus rhythm was noted on an EKG. Workup included a pulmonary embolism CT scan which was positive. She did have a small PE but because of her syncopal episode, there is still some question as to the etiology. Patient in general denies any chest pain, shortness of breath, paroxysmal nocturnal dyspnea, orthopnea, unusual edema. She rarely has some palpitations but nothing unusual. She does not normally get dizzy upon standing unless she gets up too quickly. Review of Systems Review of Systems: All systems reviewed & are unremarkable except as noted in HPI and below Constitutional: Constitutional: Denies lethargy Eyes: Eyes: Denies blurry vision ENT: Denies Normal hearing present Cardiovascular: Cardiovascular: Denies diaphoresis Respiratory: Respiratory: Denies cough and Denies dyspnea Gastrointestinal: Gastrointestinal: Denies heartburn Genitourinary: Genitourinary: Denies flank pain Musculoskeletal: Musculoskeletal: Denies back pain Integumentary/Breasts: Skin/Breast: Denies pruritus Neurologic: Denies confusion Psychiatric: Psychiatric: Denies anxiety Endocrine: Endocrine: Denies fatigue Hematologic/Lymphatic: Hematologic/Lymphatic: Denies easy bleeding Allergic/Immunologic:
[2020-01-01] MEDS: INSULIN ASPART (*BKC) 100 UNITS/ML SUB-Q (13:26)
--- NOTE | 2020-01-01 16:25 | P.PNIM_ITS ---
Progress Note: A&P Assessment and Plan (1) Syncope: Code(s): R55 - Syncope and collapse Status: Acute Assessment and Plan: * PE is one possible etiology although the PE is small. Pt also reports that the syncopal episode occurred after she swallowed a pill and felt the need to cough, prompting her to take a drink so vasovagal episode is included in the ddx. * Orthostatic BP measurements reviewed from today without evidence of orthostatic hypotension today. Per ER notes, the pt exhibited orthostatic hypotension at presentation. Continue monitoring orthostatic BP. The pt does report an episode of lightheadedness with standing on Monday which is suggestive of orthostasis. * Continue telemetry * Echocardiogram without evidence of critical valvular pathology. She does have grade 1 diastolic dysfunction, trace mild tricuspid regurgitation, and EF 60- 65%. * CT brain wo contrast without acute ischemia, mass lesion, or hemorrhage. * Brain MRI revealed no evidence of intracranial hemorrhage, acute infarction, or mass lesion * Pt has tongue ecchymosis suspicious for tongue biting. EEG was performed today. The report is pending. The pt denies hx of seizures. denies witnessed myclonic jerks, shaking, and body movements. * Cardiology was consulted, appreciate recommendations. The pt will need lexiscan myocardial perfusion study. She will also need a thirty day cardiac monitor as outpatient. She will not be able to drive for at least 6 months. (2) Minor closed head injury: Code(s): S00.90XA - Unspecified superficial injury of unspecified part of head, initial encounter Status: Acute Assessment and Plan: * Secondary to syncopal episode * The pt has bruising to the tongue which has improved today * The patient exhibits no focal neurologic deficits. Continue neuro checks Q4HR. * Continue fall precautions * Continue to monitor (3) Pulmonary embolism on left: Code(s): I26.99 - Other pulmonary embolism without acute cor pulmonale Status: Acute Assessment and Plan: * Heparin gtt was switched to PO eliquis. Hb with slight decrease today from 12.2 to 10.4 without evidence of bleeding. * Venous Doppler ultrasounds were negative for DVT although DVT is a likely etiology for PE given her significant edema and sedentary lifestyle. (4) Thrombocytopenia: Code(s): D69.6 - Thrombocytopenia, unspecified Status: Acute Assessment and Plan: * Platelet count 87,000 today. She is off heparin gtt and on eliquis 10mg BID which was started yesterday evening. * Pt has bruising at site of trauma but it appears stable. There are no other bleeding complications. * Pt will need follow-up outpatient to ensure platelet count returns to normal (5) Insulin dependent type 2 diabetes mellitus: Code(s): E11.9 - Type 2 diabetes mellitus without complications; Z79.4 - half-way (current) use of insulin Status: Acute Assessment and Plan: * BP reviewed and are stable * Continue basal insulin * Continue sliding scale insulin, Accu-Cheks, and hypoglycemic protocol (6) Hypertension: Code(s): I10 - Essential (primary) hypertension Status: Acute Assessment and Plan: * Blood pressures were reviewed and are stable today * Continue FACTORY MANAGER antihypertensives carvedilol and losartan (7) Chronic kidney disease, stage 3: Code(s): N18.3 - Chronic kidney disease, stage 3 (moderate) Status: Acute Assessment and Caesar
--- NOTE | 2020-01-01 16:25 | PM.IMPN ---
Progress Note: A&P Assessment and Plan (1) Syncope: Code(s): R55 - Syncope and collapse Status: Acute Assessment and Plan: PE is one possible etiology although the PE is small. Pt also reports that the syncopal episode occurred after she swallowed a pill and felt the need to cough, prompting her to take a drink so vasovagal episode is included in the ddx. Orthostatic BP measurements reviewed from today without evidence of orthostatic hypotension today. Per ER notes, the pt exhibited orthostatic hypotension at presentation. Continue monitoring orthostatic BP. The pt does report an episode of lightheadedness with standing on Monday which is suggestive of orthostasis. Continue telemetry Echocardiogram without evidence of critical valvular pathology. She does have grade 1 diastolic dysfunction, trace mild tricuspid regurgitation, and EF 60-65%. CT brain wo contrast without acute ischemia, mass lesion, or hemorrhage. Brain MRI revealed no evidence of intracranial hemorrhage, acute infarction, or mass lesion Pt has tongue ecchymosis suspicious for tongue biting. EEG was performed today. The report is pending. The pt denies hx of seizures. denies witnessed myclonic jerks, shaking, and body movements. Cardiology was consulted, appreciate recommendations. The pt will need lexiscan myocardial perfusion study. She will also need a thirty day sales representative groceries as outpatient. She will not be able to drive for at least 6 months. (2) Minor closed head injury: Code(s): S00.90XA - Unspecified superficial injury of unspecified part of head, initial encounter Status: Acute Assessment and Plan: Secondary to syncopal episode The pt has bruising to the tongue which has improved today The patient exhibits no focal neurologic deficits. Continue neuro checks Q4HR. Continue fall precautions Continue to monitor (3) Pulmonary embolism on left: Code(s): I26.99 - Other pulmonary embolism without acute cor pulmonale Status: Acute Assessment and Plan: Heparin gtt was switched to PO eliquis. Hb with slight decrease today from 12.2 to 10.4 without evidence of bleeding. Venous Doppler ultrasounds were negative for DVT although DVT is a likely etiology for PE given her significant edema and sedentary lifestyle. (4) Thrombocytopenia: Code(s): D69.6 - Thrombocytopenia, unspecified Status: Acute Assessment and Plan: Platelet count 87,000 today. She is off heparin gtt and on eliquis 10mg BID which was started yesterday evening. Pt has bruising at site of trauma but it appears stable. There are no other bleeding complications. Pt will need follow-up outpatient to ensure platelet count returns to normal (5) Insulin dependent type 2 diabetes mellitus: Code(s): E11.9 - Type 2 diabetes mellitus without complications; Z79.4 - local company intermodal truck driver (current) use of insulin Status: Acute Assessment and Plan: BP reviewed and are stable Continue basal insulin Continue sliding scale insulin, Accu-Cheks, and hypoglycemic protocol (6) Hypertension: Code(s): I10 - Essential (primary) hypertension Status: Acute Assessment and Plan: Blood pressures were reviewed and are stable today Continue MANAGER OF TIRES SALES antihypertensives carvedilol and losartan (7) Chronic kidney disease, stage 3: Code(s): N18.3 - Chronic kidney disease, stage 3 (moderate) Status: Acute Assessment and Plan: Creatinine with slight increase to 1.5 today. I suspect that this may be contrast-induced. Will continue to monitor (8) Suspected sleep apnea: Code(s): R29.818 - Other symptoms and signs involving the nervous system Status: Acute Assessment and Plan: Suspected due to crowded oropharynx, the patient's weight, poor sleep habits, and snoring Apnea link was ordered but was not performed yet. It will be performe
[2020-01-01 18:41] LABS: Glucose Point of Care 189 (65-105)
[2020-01-01 21:04] LABS: Glucose Point of Care 332 (65-105)
[2020-01-02] VITALS (9 sets, daily range): BP systolic 133–141; BP diastolic 44–57; PULSE 55–73; RESP 16–18; TEMP 36.6; O2SAT 97–100
[2020-01-02 06:14] LABS: Hematocrit 32.7 % (37.0-47.0); Hemoglobin 10.4 g/dL (12.0-15.0); Mean Corpuscular HGB Conc 31.8 g/dl (32-36); Mean Corpuscular Hemoglobin 28.3 pg (26-34); Mean Corpuscular Volume 88.9 fl (80-100); Platelet Count Result 97 k/mm3 (150-375); Red Blood Count 3.68 M/mm3 (4.2-5.4); Red Cell Distribution Width 13.1 % (11.5-14.5); White Blood Count 6.5 K/mm3 (4.5-10.0)
[2020-01-02 06:24] LABS: Blood Urea Nitrogen 23 mg/dL (7-17); Calcium 8.2 mg/dL (8.4-10.2); Carbon Dioxide 28 mmol/L (22-30); Chloride 99 mmol/L (98-107); Estimated CRCL calculation 31 ml/min; Estimated Glomerular Filt Rate 31; Glucose 153 mg/dL (65-105); Potassium 3.6 mmol/L (3.4-5.0); Sodium 139 mmol/L (137-145)
[2020-01-02] MEDS: APIXABAN 5 MG TABLET 10 MG PO (06:31)
--- NOTE | 2020-01-02 08:31 | EST_ITS ---
Patient Info Name: Trudy Hawthorne Age: 79 years : 1940 Gender: Female Ht: 63 in Wt: 241 lbs BSA: 2.27 m2 Exam Date: 01/02/2020 8:28 AM Exam Location: [facility] Patient Status: Inpatient Admit Date: 12/31/2019 Staff Ordering Physician: Nichole Singh APRN Attending Provider: Duran Colón MD Exercise Technologist: Hannah Newberry RDCS Exam Type: CA stress jim w NM Study Info Indications R55 - Syncope and collapse A regadenoson stress test was performed. Summary 1. Please correlate with nuclear medicine images, reported separately. 2. No abnormal ST-T wave changes with lexiscan. Protocol: Lexiscan Stress ECG Details Stage: REST Duration (min): 12 min : 8 sec HR (bpm): 58 SBP (mmHg): 123 DBP (mmHg): 61 Stage: REST Duration (min): 19 min : 54 sec HR (bpm): 60 SBP (mmHg): 123 DBP (mmHg): 61 Stage: STAGE 1 Duration (min): 0 min : 59 sec HR (bpm): 73 SBP (mmHg): 123 DBP (mmHg): 50 Stage: RECOVERY Duration (min): 1 min : 0 sec HR (bpm): 78 SBP (mmHg): 125 DBP (mmHg): 48 Stage: RECOVERY Duration (min): 2 min : 0 sec HR (bpm): 74 SBP (mmHg): 125 DBP (mmHg): 48 Stage: RECOVERY Duration (min): 3 min : 0 sec HR (bpm): 71 SBP (mmHg): 118 DBP (mmHg): 51 Stage: RECOVERY Duration (min): 3 min : 5 sec HR (bpm): 71 SBP (mmHg): 118 DBP (mmHg): 51 Rest HR: 60 bpm Peak HR: 81 bpm Rest Sys BP: 123 mmHg Peak Sys BP: 125 mmHg Max Pred HR: 142 bpm % Max Pred HR: 57 % Target HR: 121 bpm Max RPP: 10,125 bpm*mmHg Target HR Summary: Hemodynamic response to exercise was normal BP Response: Normal blood pressure response Termination Reason: Completed protocol Cardiac Symptoms: None Total Time: 1 min : 0 sec Rest Lopez BP: 61 mmHg Peak Lopez BP: 48 mmHg Total Dose: 0.4 mg Resting ECG Sinus bradycardia. Stress ECG No abnormal ST/T wave changes with exercise. Arrhythmias None. Report Signatures
--- NOTE | 2020-01-02 10:03 | PM.PNCARD ---
Progress Note: A&P Assessment and Plan (1) Syncope: Qualifiers: Syncope type: unspecified Qualified Code(s): R55 - Syncope and collapse Code(s): R55 - Syncope and collapse Status: Acute Assessment and Plan: ? Etiology. Certainly pulmonary embolism is an etiology for syncope but her pulmonary embolism is not large. Her quality assurance monitor chassis has not shown any arrhythmia. Echocardiogram was unremarkable. Orthostatic blood pressures were reportedly taken in the emergency room and were abnormal but here in the hospital were normal. Other possibilities do include arrhythmia, orthostasis or vasovagal etiology. Continue orthostatic blood pressures Q shift. Lexiscan myocardial perfusion study pending. EEG results pending. Thirty day quality assurance monitor chassis as an outpatient has been arranged.. Continue her other home medications without change at this point. Obviously anticoagulation is warranted for treatment of her pulmonary embolism. Eliquis has been chosen Also she has been advised that she should not drive x6 months as workup is still not complete and it is uncertain if her pulmonary embolism is a clear etiology for syncopal episode. (2) Pulmonary embolism on left: Code(s): I26.99 - Other pulmonary embolism without acute cor pulmonale Status: Acute Assessment and Plan: on Eliquis. (3) Hypertension: Qualifiers: Hypertension type: essential hypertension Qualified Code(s): I10 - Essential (primary) hypertension Code(s): I10 - Essential (primary) hypertension Status: Acute Assessment and Plan: At goal (4) Chronic kidney disease, stage 3: Code(s): N18.3 - Chronic kidney disease, stage 3 (moderate) Status: Acute Assessment and Plan: Stable Additional Plan If stress test negative and no further diagnostic testing is needed she can be discharged home. Monitor has been arranged in the office. This will be put on after she has discharge. Follow-up with Dr. Pete as also been arranged. Plan discussed Dr. Pete 0900 01/02/2020 Time Spent With Patient Time with patient: 15 - 25 minutes Subjective Date/time seen: 01/02/20 08:45 seen in stress lab Interval history: Follow-up for: Syncope Date of service: 01/02/2020 Subjective: Denied chest discomfort, shortness of breath, lightheadedness or palpitations. Does have a lot of burping. Review of Systems Constitutional: Constitutional: Denies fatigue and Denies lethargy Eyes: Eyes: Denies blurry vision ENT: Denies Normal hearing present Cardiovascular: Cardiovascular: Denies diaphoresis and Denies dyspnea Respiratory: Respiratory: Denies cough and Denies dyspnea Gastrointestinal: Gastrointestinal: Reports belching and Denies heartburn Genitourinary: Genitourinary: Denies flank pain Musculoskeletal: Musculoskeletal: Denies back pain Integumentary/Breasts: Skin/Breast: Denies pruritus Neurologic: Denies Normal hearing present and Denies confusion Psychiatric: Psychiatric: Denies anxiety and Denies confusion Endocrine: Endocrine: Denies fatigue Hematologic/Lymphatic: Hematologic/Lymphatic: Denies easy bleeding Allergic/Immunologic: Allergic/Immunologic: Denies GI upset with certain foods Exam Const: General: no acute distress; No confusion Orientation/consciousness: patient oriented x3 HENMT: General nose exam: Normal nares present Eyes: Sclera: abnormal sclerae Neck: Neck: supple and no JVD Resp: Auscultation: clear to auscultation bilaterally Cardio: Rate: regular rate Rhythm: regular rhythm Skin: General skin exam: normal color Neuro: General: No confusion Cranial nerves: No Normal hearing present Cognition (Neuro): normal cognition Speech: normal speech Extrem: General: normal to inspection Right lower extremity: no edema
[2020-01-02] MEDS: BENZONATATE 100 MG CAPSULE PO (10:27)
[2020-01-02] MEDS: ATORVASTATIN 20 MG TABLET PO (10:28)
[2020-01-02] MEDS: LORATADINE 5 MG TABLET PO (10:28)
[2020-01-02] MEDS: carvediloL 12.5 MG TABLET PO (10:28)
[2020-01-02] MEDS: POTASSIUM CHLORIDE 10 MEQ TABLET.ER PO (10:28)
[2020-01-02] MEDS: FUROSEMIDE 40 MG TABLET PO (10:29)
[2020-01-02] MEDS: LOSARTAN POTASSIUM 100 MG TABLET PO (10:29)
[2020-01-02] MEDS: CHOLECALCIFEROL 400 UNITS TABLET (VIT D) PO (10:29)
[2020-01-02 10:42] LABS: Glucose Point of Care 184 (65-105)
--- NOTE | 2020-01-02 10:46 | PC.NURSE ---
Pt went down for a jim scan at 0745.. Pts meds given late since pt didn't return to the floor at 0945.
[2020-01-02] MEDS: INSULIN DETEMIR 100 UNITS/ML 30 UNITS SUB-Q (11:17)
--- NOTE | 2020-01-02 20:44 | PM.DS ---
DS: Diagnosis Admitting Diagnosis Admitting Diagnosis: Syncope and collapse Discharge Diagnosis (1) Syncope: Qualifiers: Syncope type: unspecified Qualified Code(s): R55 - Syncope and collapse Code(s): R55 - Syncope and collapse Status: Acute Assessment and Plan: Mrs. Hawthorne is a 79 y.o. female with PMH significant for HTN, HLD, T2DM, and CKD stage III who presented to the ED via private vehicle for evaluation of a syncopal episode. The pt reports that she was standing in the kitchen swallowing a pill and remembers feeling the need to cough and take a drink. She then fell and hit her head and back against the cabinet. Her heard her fall and immediately went to check on her. He reported that she was alert but a bit confused about what had happened. The pt and deny any seizure-like activity associated with the episode. She reports an episode of lightheadedness with standing Monday when she got up to get a blanket. She denied loss of consciousness with that episode. She denies feeling palpitations, dizziness, choking, or lightheadedness prior to the episode. Initial workup in the ED revealed left lower lobe segmental PE. Venous doppler was negative for lower extremity DVT. WCC 9.7, Hgb 12.8, Hct 41.2, platelet count 111, sodium 139, potassium 3.7, chloride 102, CO2 29, BUN 22, Cr 1.3, troponin 0.014. UA was negative for UTI. Echo was performed and revealed grade 1 diastolic dysfunction, trace mild tricuspid regurgitation, and EF 60-65% without critical valvular pathology. Carotid doppler revealed <50% stenosis bilaterally. CT brain wo contrast revealed no evidence of acute ischemia, mass lesion, or hemorrhage. Pt had bruising to the tongue so MRI brain and EEG were performed. MRI revealed no evidence of intracranial hemorrhage, acute infarction, or mass lesion. Dr. Duff reviewed the EEG and stated that there was no evidence of epilepsy. He recommended outpatient neurology follow-up but did not recommend starting any anticonvulsants at this time. The pt was advised to schedule an appt with him outpatient in 2-3 weeks. Cardiology, Dr. Pete, was consulted and recommended lexiscan stress test and 30 day cooling room attendant. Lexiscan stress test showed a possible small, mild, fixed perfusion defect involving the mid inferior segment of the left ventricle, consistent with infarction. The pt had no complaints of any prior or active chest pain. She denied chest pain with exertion or at rest. She denied dyspnea at rest or with exertion. Cardiac cath was recommended by Dr. Pete as outpatient since the pt is on eliquis for treatment of her PE. A follow-up appointment was scheduled to review telemetry and schedule the cardiac cath as outpatient. Dr. Pete advised that the pt should not drive for at least 6 months and until her workup for the syncopal episode is complete. She verbalized understanding and her will drive her. Apnea link was performed due to concern for possible sleep apnea and showed high suspicion for pathological breathing disorder. The pt will need to schedule outpatient follow-up with Dr. Castro, women's ministry director, for a formal sleep study and further treatment. She was discharged with instructions to continue eliquis for treatment of her PE. She will need to get additional refills from her PCP. She will also need follow-up labs to ensure platelet count is stable and renal function is back to baseline. She was advised to practice fall precautions and sit or stand up slowly from a lying or seated position. All additional questions were answered. The pt was ambulating without difficulty, tolerating PO intake well, and urinary and stool patterns were normal. She was hemodynamically stable and neurologically intact at the time of discharge. (2) Minor closed head injury: Code(s): S00.90XA - Unspecified superficial injury of unspecified part of head, initial encounter Status: Acute Assessment
--- NOTE | 2020-01-03 10:35 | PC.NURSE ---
Patient called office; returning Cassi's call. I instructed patient she is to take Eliquis 10 mg BID thru 01/07/2020 and then switch to Eiquis 5 mg BID. Patient states understanding. This is how the instructions are on her Eliquis bottle label.
== END 2020-01-02 14:40 | disposition home or self-care (01) | DRG 176 ==
LOC: ANHED 12:54 → ANH3MEDSUR 13:56
PROVIDERS: Emergency Medicine Emergency Medical Services; Physician Assistant; Admitting Provider Family Medicine; Emergency Provider Emergency Medicine; PCP Internal Medicine; Visit Provider Internal Medicine
DX: I26.99 Other pulmonary embolism without acute cor pulmonale (principal); I95.1 Orthostatic hypotension; R55 Syncope and collapse; S00.90XA Unspecified superficial injury of unspecified part of head, initial encounter; S00.532A Contusion of oral cavity, initial encounter; W18.09XA Striking against other object with subsequent fall, initial encounter; I12.9 Hypertensive chronic kidney disease with stage 1 through stage 4 chronic kidney disease, or unspecified chronic kidney disease; E11.22 Type 2 diabetes mellitus with diabetic chronic kidney disease; N18.3 Chronic kidney disease, stage 3 (moderate); D69.6 Thrombocytopenia, unspecified; E78.5 Hyperlipidemia, unspecified; G47.30 Sleep apnea, unspecified; K21.9 Gastro-esophageal reflux disease without esophagitis; M81.0 Age-related osteoporosis without current pathological fracture; Z79.4 Long term (current) use of insulin; Z90.710 Acquired absence of both cervix and uterus; Z90.49 Acquired absence of other specified parts of digestive tract; Z98.42 Cataract extraction status, left eye; Z98.41 Cataract extraction status, right eye
CPT/HCPCS: 36415; 70450; 70551; 71046; 71275; 72125; 78452; 80048; 81001; 84443; 84484; 85025; 85027; 85055; 85380; 85610; 85730; 93005; 93017; 93306; 93880; 93970; 94762; 95816; 96365; 96366; 96367; 99285; A9270; A9502; G0378; J0131; J1644; J1815; J2785; J7040; J7120; Q9967

== ENCOUNTER 2020-06-15 13:52 | Emergency (ER) | payer OTHER, MEDICARE, SELFPAY ==
--- NOTE | ~2020-06-15 | CT_ITS ---
EXAMINATION: CT brain wo con DATE: 06/15/2020 14:35 INDICATION: Left frontal head injury with hematoma and bruising. TECHNIQUE: Computed tomography (CT) of the head was performed without intravenous contrast. Sagittal and coronal reconstructions were performed. The mA was adjusted according to patient size. Iterative reconstruction technique was employed. The dose-length product was 605.33 mGy-cm. COMPARISON: head CT dated 12/30/2019 FINDINGS: Large left frontal scalp hematoma. No fracture. No acute intracranial hemorrhage, acute infarction or abnormal extra axial fluid collection. There is minimal scattered white matter hypoattenuation consi stent with chronic small vessel ischemic disease. Symmetric prominence of the sulci consistent with m ild age-appropriate diffuse cerebral volume loss. Ventricles are normal and symmetric. No mass/mass effect. Mucosal thickening in the left maxillary sinus. Changes of bilateral intraocular lens replace ment. The orbits and mastoid air cells are normal. Mild atherosclerotic calcification at the bilatera l carotid siphons. IMPRESSION: 1. No fracture or acute intracranial process. 2. Age-related changes including mild diffuse volume loss and minimal scattered white matter hypoatte nuation consistent with chronic small vessel ischemic disease. Reviewed, dictated and finalized at location A. IMPRESSION: 1. No fracture or acute intracranial process. 2. Age-related changes including mild diffuse volume loss and minimal scattered white matter hypoattenuation consistent with chronic small vessel ischemic dis ease.
--- NOTE | ~2020-06-15 | CT_ITS ---
EXAMINATION: CT cervical spine wo con DATE: 06/15/2020 14:36 INDICATION: Right injury post fall TECHNIQUE: Computed tomography (CT) of the cervical spine was performed without intravenous contrast. Automated exposure control and iterative reconstruction technique were employed. The dose-length pro duct was 458.04 mGy-cm. COMPARISON: 12/30/2019 FINDINGS: Alignment is normal. Severe osteoarthritis at the atlantoaxial articulation. Vertebral body heights a re normal. No fracture. Mild disc height loss at C4-C5, C5-C6 and C6-C7 as well as at T1-T2. There mo derate-sized anterior osteophytes in the mid to lower cervical spine as well as bridging anterior ost eophytes at T2-T3. There are disc osteophyte complexes resulting in mild central canal stenosis at C5 -C6 and C6-C7 and at T1-T2. Bilateral multilevel moderate to severe cervical and upper thoracic facet osteoarthritis most prominent at the left side of the upper cervical spine and right side of the low er cervical and upper thoracic spine. This results in bilateral multilevel neural foraminal stenosis. Multinodular goiter, many nodules with coarse calcifications. Atherosclerotic calcification is at th e bilateral carotid bulbs. Cervical soft tissues are otherwise unremarkable. Visualized airway and ap ices of the lungs are clear. IMPRESSION: 1. Moderate cervical spondylosis. No acute osseous abnormality. Reviewed, dictated and finalized at location A.
[2020-06-15 13:55] VITALS: BP 187/68; PULSE 62; RESP 17; TEMP 36.7; O2SAT 96
--- NOTE | 2020-06-15 14:02 | ED.GENADULT ---
HPI - General Adult General Chief complaint: Fall Stated complaint: Fall/HI Time Seen by Provider: 06/15/20 14:01 Source: patient and family Mode of arrival: ambulatory Limitations: no limitations History of Present Illness HPI narrative: Patient is a 80-year-old female with a history of pulmonary embolism on Eliquis, hypertension, who presents for evaluation of head injury following a ground-level fall. 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 Patient hit her head on the concrete floor on the left side, patient denied any loss of consciousness. No vision changes, nausea or vomiting. She reports dull, aching pain over her left forehead and left eye. No vision changes, nausea, vomiting, palpitations, chest pain prior to the fall. Patient takes all of her medications as prescribed. She had a small PE found on imaging while she was hospitalized in January for syncope work-up. This was noted to be an incidental finding, but patient is currently anticoagulated. Related Data Home Medications Medication Instructions Recorded Confirmed calcium citrate 250 mg PO DAILY 11/29/19 12/30/19 cetirizine 10 mg tablet 5 mg PO DAILY PRN 11/29/19 12/30/19 cholecalciferol (vitamin D3) 10 400 unit PO DAILY 11/29/19 12/30/19 mcg (400 unit) capsule owxuzlsaerhm-lbmdsglo-fhckpm 1 tablet PO DAILY 11/29/19 12/30/19 furosemide 80 mg PO DAILY 12/30/19 12/30/19 apixaban [Eliquis] mg 06/15/20 prednisone 06/15/20 Allergies Allergy/AdvReac Type Severity Reaction Status Date / Time No Known Allergies Allergy Verified 06/15/20 14:04 Review of Systems Review of Systems: Narrative: CONSTITUTIONAL: Denies fever HEENT: Denies vision changes CARDIOVASCULAR: Denies chest pain RESPIRATORY: Denies cough or dyspnea. GASTROINTESTINAL: Denies abdominal pain SKIN: Denies rash MUSCULOSKELETAL: Denies back pain NEUROLOGIC: Reports mild headache, denies numbness, weakness PMFSH Past Medical History Medical History Chronic edema Chronic kidney disease, stage 3 Baseline creatinine is around 1.40. Dyslipidemia GERD (gastroesophageal reflux disease) Hypertension Insulin dependent type 2 diabetes mellitus Hemoglobin A1c was 6.9% in October 2018. Osteoporosis Surgical History Surgical History History of incisional hernia repair Status post cataract extraction Status post cholecystectomy Status post hysterectomy Social History Social History Social History: The patient is and she lives in [place] with her of 60 years. 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 She designates her Vin as her surrogate decision maker and she wishes to be a full code. She is a lifelong nonsmoker and denies alcohol and drug abuse. Gender identity (if verbalized by the patient): Female Spiritual care concerns: No Agree to blood products: Yes Exam Narrative: Exam Narrative: Nursing note and vitals reviewed. CONSTITUTIONAL: The patient appears well-developed and well-nourished. No distress. HEAD: Patient with large left forehead hematoma, periorbital ecchymoses, abrasion to nasal bridge with edema EYES: 2+ PERRL, EOMI, normal conjunctiva, anicteric, no hyphema EARS: External ears clear bilaterally, no hemotympanum MOUTH: OP clear, no erythema, exudates NECK: midline trachea, supple, FROM. [ ] Cervical spinal tenderness. CARDIOVASCULAR: Normal rate, regular rhythm, normal heart sounds and intact distal pulses. No murmurs, rubs, gallops. PULMONARY: Effort normal and breath sounds normal. No respiratory distress. The patient has no wheezes, rales, ronchi. No chest wall tenderness, crepitus or ecchymoses. ABDOMINAL: Soft. Nontender, nondistended. No palpable masses EXTREMITIES:: moving
[2020-06-15] MEDS: TETANUS,DIPHTHERIA,AC PERTUSSIS ADULT (0.5 ML) BOOSTRIX IM (14:40)
[2020-06-15] MEDS: ONDANSETRON HCL ODT 4 MG TABLET PO (14:41)
[2020-06-15] MEDS: oxyCODONE/ACETAMINOPHEN 5-325 MG TABLET 1 TABLET PO (14:41)
[2020-06-15 15:22] VITALS: BP 177/63; PULSE 60; RESP 18; O2SAT 98
== END 2020-06-15 15:23 | disposition home or self-care (01) ==
PROVIDERS: Emergency Provider Emergency Medicine; PCP Internal Medicine
DX: S00.83XA Contusion of other part of head, initial encounter (principal); Z23 Encounter for immunization; I10 Essential (primary) hypertension; Z86.711 Personal history of pulmonary embolism; Z79.01 Long term (current) use of anticoagulants; E11.22 Type 2 diabetes mellitus with diabetic chronic kidney disease; I12.9 Hypertensive chronic kidney disease with stage 1 through stage 4 chronic kidney disease, or unspecified chronic kidney disease; N18.3 Chronic kidney disease, stage 3 (moderate); M81.0 Age-related osteoporosis without current pathological fracture; Z98.49 Cataract extraction status, unspecified eye; M47.812 Spondylosis without myelopathy or radiculopathy, cervical region
CPT/HCPCS: 70450; 72125; 90471; 90715; 99284; A9270

== ENCOUNTER 2020-12-18 17:13 | Outpatient (CLI) | payer MEDICARE, SELFPAY ==
--- NOTE | ~2020-12-18 | XR_ITS ---
EXAMINATION: XR chest 2V DATE: 12/18/2020 17:37 INDICATION: Cough TECHNIQUE: PA and lateral views of the chest were obtained. COMPARISON: Chest radiograph and CT dated 12/30/2019 FINDINGS: The lungs remain clear with no focal airspace opacities, pulmonary edema, pleural effusion or pneumot horax. The cardiomediastinal silhouette is normal. Post cystectomy clips in the right upper quadrant. There are bridging osteophytes at multiple levels in the spine, consistent with diffuse idiopathic s keletal hyperostosis (DISH). Bilateral rotator cuff arthropathy. IMPRESSION: 1. No acute cardiopulmonary disease. Reviewed, dictated and finalized at location A. L STRUCTURE OPERATOR
== END 2020-12-18 17:14 | disposition home or self-care (01) ==
PROVIDERS: PCP Internal Medicine; Visit Provider Nurse Practitioner
DX: R05 Cough (principal)
CPT/HCPCS: 71046

== ENCOUNTER 2021-01-05 08:34 | Outpatient (CLI) | payer MEDICARE, SELFPAY ==
--- NOTE | ~2021-01-05 | US_ITS ---
EXAMINATION: US venous doppler [facility] EXAM DATE: 01/05/2021 09:10 INDICATION: Left leg swelling. TECHNIQUE: Multiple grayscale, color flow and Doppler images of the left lower extremity deep venous system were obtained and reviewed. Comparison is made to prior examination from 12/30/2019. FINDINGS: The left common femoral, femoral and profunda veins demonstrate normal color flow, respirat ory variation, augmentation and compressibility. Compressibility, color flow confirmed within the le ft popliteal, posterior tibial, peroneal, and greater saphenous veins. There is left calf edema. IMPRESSION: 1. No left lower extremity deep venous thrombosis. Reviewed, dictated and finalized at location A. RMATION TECHNOLOGY PROJECT MANAGER
== END 2021-01-05 08:35 | disposition home or self-care (01) ==
PROVIDERS: PCP Internal Medicine; Visit Provider Nurse Practitioner
DX: M79.89 Other specified soft tissue disorders (principal)
CPT/HCPCS: 93971

== ENCOUNTER 2021-01-05 14:26 | Outpatient (CLI) | payer MEDICARE, SELFPAY | END 2021-01-05 14:27 | disposition home or self-care (01) | LOC: ANHCOVIDVC 14:26 | PROVIDERS: PCP Internal Medicine; Visit Provider Internal Medicine | DX: Z23 Encounter for immunization (principal) | CPT/HCPCS: 0001A; 91300 ==

== ENCOUNTER 2021-01-26 14:25 | Outpatient (CLI) | payer MEDICARE, SELFPAY | END 2021-01-26 14:26 | disposition home or self-care (01) | LOC: ANHCOVIDVC 14:25 | PROVIDERS: PCP Internal Medicine | DX: Z23 Encounter for immunization (principal) | CPT/HCPCS: 0002A; 91300 ==

== ENCOUNTER → 2021-07-02 13:47 | Outpatient (CLI) | payer MEDICARE, SELFPAY ==
--- NOTE | ~2021-07-02 | CT_ITS ---
EXAMINATION: CT sinus wo con DATE: 07/02/2021 14:03 INDICATION: Chronic sinusitis TECHNIQUE: Computed tomography (CT) of the paranasal sinuses was performed without contrast. Iterativ e reconstruction technique was employed. Exam dose: 259.66 mGy-cm total exam DLP. COMPARISON: 06/15/2020 CT brain FINDINGS: There is rightward deviation of the nasal septum. There is asymmetric moderate soft tissue swelling of the left middle and inferior nasal turbinate. Intralamellar cell of both middle nasal turbinates. There is focal soft tissue swelling at the middle meatus and right maxillary sinus at the posterior m argin of the right infundibulum. The right infundibulum is patent. The left ostiomeatal unit is patent. There is moderate nodular mucoperiosteal thickening along the inferomedial left maxillary sinus. There is an opacified anterior left ethmoid air cell. The frontal sinuses and sphenoid sinuses are normally developed and aerated. The mastoid air cells are normally developed and aerated bilaterally. Middle and inner ear apparatus appear normal bilaterally. IMPRESSION: Rightward deviation of nasal septum Soft tissue swelling of left nasal turbinates Intralamellar cell of both middle nasal turbinates Focal soft tissue thickening in the upper medial right maxillary sinus at posterior margin of right m axillary ostium, soft tissue swelling of the middle meatus Moderate inferomedial left maxillary nodular soft tissue thickening Opacified anterior left ethmoid air cell Reviewed, dictated and finalized at Location A. Reviewed, dictated and finalized at location A. IMPRESSION: Rightward deviation of nasal septum Soft tissue swelling of left nasal turbinates Intralamellar cell of both middle nasal turbinates Focal soft tissue thickening in the upper medial right maxillary sinus at poste rior margin of right maxillary ostium, soft tissue swelling of the middle meatu s Moderate inferomedial left maxillary nodular soft tissue thickening Opacified anterior left ethmoid air cell
== END ==
PROVIDERS: PCP Internal Medicine; Visit Provider Allergy & Immunology
DX: J32.9 Chronic sinusitis, unspecified (principal); R93.0 Abnormal findings on diagnostic imaging of skull and head, not elsewhere classified
CPT/HCPCS: 70486

== ENCOUNTER 2021-10-01 13:30 | Emergency (ER) | payer MEDICARE, SELFPAY ==
--- NOTE | ~2021-10-01 | XR_ITS ---
EXAMINATION: XR ankle LT min 3V, XR foot LT min 3V DATE: 10/01/2021 14:16 INDICATION: Left foot and ankle pain and swelling post fall TECHNIQUE: 1. Anteroposterior, mortise, additional oblique and lateral view of the left ankle were obtained. 2. Dorsoplantar, two oblique and lateral views of the left foot were obtained. COMPARISON: None. FINDINGS: Alignment of the left foot and ankle is normal. No acute fracture. Chronic nonaggressive callus forma tion along the metaphyseal region of the distal tibia. Small heterotopic ossicle at the tip of the me dial malleolus likely sequela of chronic medial ankle sprain. Moderate polyarticular osteoarthritis i nvolving multiple joints in the mid and forefoot. Mild osteoarthritis at the tibiotalar and subtalar joints. Large Achilles and plantar calcaneal spurs. Additional enthesophytes at the dorsal aspect of the midfoot. No ankle joint effusion. Prominent soft tissue swelling with subcutaneous edema about th e distal lower leg, ankle and extending over the dorsum of the foot. IMPRESSION: 1. No acute osseous abnormality. 2. Moderate polyarticular osteoarthritis and prominent enthesopathy throughout the left foot. Reviewed, dictated and finalized at location A. TOP PUBLISHER IMPRESSION: 1. No acute osseous abnormality. 2. Moderate polyarticular osteoarthritis and prominent enthesopathy throughout the left foot.
--- NOTE | ~2021-10-01 | US_ITS ---
EXAMINATION:US venous doppler LE LT INDICATION:Left leg swelling TECHNIQUE: Multiple grayscale, color flow and Doppler images of the left lower extremity deep venous systems were obtained and reviewed. COMPARISON:01/05/2021 FINDINGS: The common femoral, superficial femoral and popliteal veins demonstrate normal respiratory variation, augmentation and compressibility. Color flow is also seen within the posterior tibial, pe roneal, greater saphenous and profunda veins. IMPRESSION: 1: No lower extremity deep venous thrombosis. Reviewed, dictated and finalized at location A. S ENGINEER ACCOUNT MANAGER
[2021-10-01 14:00] VITALS: BP 144/65; PULSE 58; RESP 16; TEMP 36.6; O2SAT 98
--- NOTE | 2021-10-01 16:38 | ED.LOWEXIN ---
HPI - Extremity Injury (Lower) General Chief Complaint: Extremity Injury, Lower Stated Complaint: foot pain Time Seen by Provider: 10/01/21 14:47 Source: patient History of Present Illness HPI Narrative: Patient presents with left lower extremity swelling. Patient reports she fell down approximately 1 week ago. She was attempting to get into her car when she missed a step and landed on her left foot. Presenting manage her symptoms at home however she had progressively worse swelling and pain so she came to the ER for evaluation. Pain is achy, constant, worse with walking around, radiates up her leg. She denied striking her head on the fall she denies use of any blood thinners. She denied prodrome prior to the fall such as chest pain, shortness of breath, lightheadedness or dizziness Related Data Home Medications Medication Instructions Recorded Confirmed xjeyikvffhke-kdpqqqhh-xmnhtc tablet 1 tablet PO DAILY 11/29/19 08/30/21 aspirin 325 mg tablet 325 mg PO DAILY 08/30/21 08/30/21 calcium citrate 600 mg PO DAILY tablet 08/30/21 08/30/21 fluticasone furoate 200 1 inh INHALATION DAILY 08/30/21 08/30/21 mcg-vilanterol 25 mcg/dose inhalation powder zinc sulfate 50 mg zinc (220 mg) 50 mg PO DAILY 08/30/21 08/30/21 capsule Allergies Allergy/AdvReac Type Severity Reaction Status Date / Time No Known Allergies Allergy Verified 08/30/21 07:25 Review of Systems Review of Systems: CONSTITUTIONAL: Denies fever, chills, or sweats. EYES: Denies visual changes, redness, or discharge. ENT: Denies rhinorrhea, congestion, sore throat, or otalgia. CARDIOVASCULAR: Denies chest pain, palpitations, or edema. RESPIRATORY: Denies cough or dyspnea. GASTROINTESTINAL: Denies abdominal pain, nausea, vomiting, or diarrhea. GENITOURINARY: Denies dysuria or hematuria. SKIN: Denies rash or itching. MUSCULOSKELETAL: Denies back pain, or myalgia. NEUROLOGIC: Denies headache, numbness, dizziness, or weakness. PSYCHIATRIC: Denies anxiety or depression. All systems reviewed & are unremarkable except as noted in HPI and below PMFSH Past Medical History Medical History (Updated 10/01/21 @ 16:44 by Blake Boles MD) Chronic edema Chronic kidney disease, stage 3 Baseline creatinine is around 1.40. Dyslipidemia GERD (gastroesophageal reflux disease) Hypertension Insulin dependent type 2 diabetes mellitus Hemoglobin A1c was 6.9% in October 2018. Osteoporosis Surgical History Surgical History History of incisional hernia repair Status post cataract extraction Status post cholecystectomy Status post hysterectomy Family History Family History Father Acute myocardial infarction Social History Social History Social History: The patient is and she lives in [place] with her of 60 years. 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 She designates her Vin as her surrogate decision maker and she wishes to be a full code. She is a lifelong nonsmoker and denies alcohol and drug abuse. Smoking status: Never smoker Second hand tobacco smoke exposure: No Alcohol intake: never Substance use: never Gender identity (if verbalized by the patient): Female Spiritual care concerns: No Agree to blood products: Yes Exam Narrative: GENERAL: Well-appearing, well-nourished, and in no acute distress. HEAD: Normocephalic, atraumatic. EYES: PERRLA and EOMI. ENT: Nares clear, no rhinorrhea or epistaxis. Mucous membranes moist. NECK: Supple. No masses. No JVD EXTREMITIES: 4+ pitting edema in the left lower extremity up to the knee with ecchymosis noted on the left foot 2+ pitting edema noted on the right lower extremity. There is moderate tenderness palpation on the of the left foot no open or draining wounds no significant eryt
== END 2021-10-01 17:00 | disposition home or self-care (01) ==
PROVIDERS: Emergency Provider Emergency Medicine; PCP Internal Medicine
DX: S93.602A Unspecified sprain of left foot, initial encounter (principal); I12.9 Hypertensive chronic kidney disease with stage 1 through stage 4 chronic kidney disease, or unspecified chronic kidney disease; E11.22 Type 2 diabetes mellitus with diabetic chronic kidney disease; N18.30 Chronic kidney disease, stage 3 unspecified; E78.5 Hyperlipidemia, unspecified; K21.9 Gastro-esophageal reflux disease without esophagitis; M81.0 Age-related osteoporosis without current pathological fracture; Z98.49 Cataract extraction status, unspecified eye; M19.072 Primary osteoarthritis, left ankle and foot; W17.89XA Other fall from one level to another, initial encounter; Z79.82 Long term (current) use of aspirin; Z79.4 Long term (current) use of insulin
CPT/HCPCS: 73610; 73630; 93971; 99284

== ENCOUNTER 2023-08-04 13:51 | Outpatient (CLI) | payer MEDICARE, SELFPAY ==
--- NOTE | ~2023-08-04 | US_ITS ---
EXAMINATION: US arterial ankle brachial ind DATE: 08/04/2023 14:44 INDICATION: Peripheral vascular disease TECHNIQUE: Segmental pressures and plethysmographic and Doppler waveforms of the brachial and lower e xtremity arteries were obtained. COMPARISON: None. FINDINGS: Right and left brachial artery pressures of 149 mm Hg and 141 mm Hg, respectively, are concordant (no rmal difference <= 30 mmHg). The right ankle-brachial index (NANCY) is 1.04 (normal >= 0.9-1.0). The right great toe-brachial index (TBI) is 0.74 (normal >= 0.65). Arterial Doppler waveforms are biphasic at the right posterior tibial and triphasic at the right dorsalis pedis artery, both with brisk systolic upstrokes. The left NANCY is unable to be obtained as patient was unable to tolerate compression at the left ankle . The left TBI is 0.72. Arterial Doppler waveforms are biphasic at the left posterior tibial artery a nd triphasic at the left dorsalis pedis artery, both with brisk systolic upstrokes. IMPRESSION: 1. No significant arterial occlusive disease with normal bilateral TBI's and right NANCY. Left NANCY was unable to be assessed. 2. Cardiac arrhythmia is present. Correlate with EKG. Reviewed, dictated and finalized at location A. IMPRESSION: 1. No significant arterial occlusive disease with normal bilateral TBI's and ri ght NANCY. Left NANCY was unable to be assessed. 2. Cardiac arrhythmia is present. Correlate with EKG.
== END 2023-08-04 13:52 | disposition home or self-care (01) ==
PROVIDERS: PCP Family Medicine; Visit Provider Family Medicine
DX: I73.9 Peripheral vascular disease, unspecified (principal)
CPT/HCPCS: 93922

== ENCOUNTER 2024-10-25 13:09 | Emergency (ER) | payer MEDICARE, SELFPAY ==
[2024-10-25 13:21] VITALS: BP 117/76; PULSE 92; RESP 18; TEMP 36.3; O2SAT 99
--- NOTE | 2024-10-25 14:03 | ED.URI ---
HPI - URI/Sore Throat General Chief Complaint: Upper Respiratory Infection Stated Complaint: cough Time Seen by Provider: 10/25/24 14:03 Source: patient, RN notes reviewed and old records reviewed Mode of arrival: ambulatory Limitations: no limitations History of Present Illness HPI Narrative: Patient presents with complaints of cough and congestion for about 5 days. She reports that her has been ill with similar symptoms, he was recently treated for pneumonia. Patient reports that her cough has become productive. She does have intermittent wheezing. Denies any shortness of breath. She voices no other concerns or complaints at this time. She has been taking nothing for her symptoms Related Data Home Medications ?Medication ?Instructions ?Recorded ?Confirmed ?Last Taken ?Type tfjzbhchjclv-ddzsfphi-jksehh tablet 1 tablet PO DAILY 11/29/19 08/13/24 Unknown History calcium citrate 600 mg PO DAILY 08/30/21 08/13/24 Unknown History zinc sulfate 50 mg zinc (220 mg) 50 mg PO DAILY 08/30/21 08/13/24 Unknown History capsule (Orazinc) aspirin 81 mg tablet,delayed 81 mg PO DAILY 11/08/22 08/13/24 Unknown History release fluticasone propionate 50 2 spray intranasal DAILY PRN 04/24/24 08/13/24 Unknown History mcg/actuation nasal spray,suspension (Flonase Allergy Relief) Allergies Allergy/AdvReac Type Severity Reaction Status Date / Time No Known Allergies Allergy Verified 10/25/24 13:32 Review of Systems Review of Systems: All systems reviewed & are unremarkable except as noted in HPI and below Constitutional: Constitutional: Reports no additional constitutional complaints and Reports lethargy ENT: Reports system reviewed and no additional complaints, except as documented Cardiovascular: Cardiovascular: Reports no additional cardiovascular complaints Respiratory: Respiratory: Reports no additional respiratory complaints, Reports chest congestion, Reports cough and Reports excessive phlegm production Gastrointestinal: Gastrointestinal: Reports no additional gastrointestinal complaints [facility] Past Medical History Medical History Afib Chronic edema Chronic kidney disease, stage 3 Baseline creatinine is around 1.40. DVT (deep venous thrombosis) Dyslipidemia GERD (gastroesophageal reflux disease) Hypertension Insulin dependent type 2 diabetes mellitus Hemoglobin A1c was 6.9% in October 2018. Osteoporosis Surgical History Surgical History History of incisional hernia repair Status post cataract extraction Status post cholecystectomy Status post hysterectomy Family History Family History Father Acute myocardial infarction Social History Social History Social History: The patient is and she lives in [place] with her of 60 years. 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 She designates her Vin as her surrogate decision maker and she wishes to be a full code. She is a lifelong nonsmoker and denies alcohol and drug abuse. Smoking status: Never smoker Second hand tobacco smoke exposure: No Alcohol intake: never Substance use: never Substance use type: does not use Do You Feel Safe in your Home?: Yes Lack of Transportation: No Lack of Food: Never True Current Housing: I Have Housing Concerned About Future Housing: No Difficulty Paying Gas/Electric Bills: No Difficulty Paying for Meds: No Currently Unemployed: No Education: High School Diploma/GED Difficulty w/ Childcare or Family Care: No Gender identity (if verbalized by the patient): Female Spiritual care concerns: No Agree to blood products: Yes Comments At the time of my signature, I reviewed and agree with the nursing past medical, surgical, social, and family history. There is no relevant family history pertinent to the patient complaint. Exam Const: General: cooperative, no acute distress, alert and awake Orientation/consciousness: oriented to person, oriented to place and oriented to time HENMT: Head: normal to inspection Ears: TM abnormal dull bilateral Resp: Effort & Inspection: normal respiratory effort and able to speak in complete sentences Auscultation: clear to auscultation bilaterally, no crackles, no rales, no rhonchi and wheezes expiratory wheezes and scattered wheezes Cardio: Palpation: normal PMI Rate: regular rate Rhythm: regular rhythm Heart sounds: S1 normal heart sound present and S2 normal heart sound present Neuro: General: oriented to person, oriented to place and oriented to time Cranial nerves: Yes CN's II-XII intact bilaterally Psych: Appearance: grossly normal Thought process: Normal thought process present Insight: Good insight present (Psych) Judgement: Good judgement present (Psych) Course Course Level of Care: Express Care Visit Vital Signs Vital signs: Vital Signs Temperature 97.3 F L 10/25/24 13:21 Pulse Rate 92 10/25/24 13:21 Respiratory Rate 18 10/25/24 13:21 Blood Pressure 117/76 10/25/24 13:21 Pulse Oximetry 99 10/25/24 13:21 Oxygen Delivery Room Air 10/25/24 13:21 Temperature 97.3 F L 10/25/24 13:21 Pulse Rate 92 10/25/24 13:21 Respiratory Rate 18 10/25/24 13:21 Blood Pressure 117/76 10/25/24 13:21 Pulse Oximetry 99 10/25/24 13:21 Oxygen Delivery Room Air 10/25/24 13:21 Reviewed MDM - URI/Sore Throat MDM Narrative Medical decision making narrative: patient with mild scattered wheezes. No distress. Has been with atypical pneumonia. Will treat this nontoxic appearing patient was seen. Start p.o. antibiotics, bronchodilator, steroid. Discharge instructions reviewed with patient, as well as provided in writing per nursing staff. The instructions also include specific and strict return/GO TO THE ER as well as f/u information. All questions have been answered, and the patient deny any further questions with discharge and discharge plan. Some parts of this dictation were generated by voice recognition software and may contain typographical and/or grammatical inaccuracies. Differential Diagnosis Differential diagnosis: Likely upper respiratory infection, otitis media, sinusitis, viral infection, influenza and pharyngitis Medical Records Attestation: I reviewed the patient's medical records. Discharge Plan Discharge Clinical Impression: Atypical pneumonia Patient Disposition: Home, Self-Care Condition: Stable Instructions: Antibiotic Form, Community Acquired Pneumonia (ED) Patient Language: Bahamian Prescriptions: New doxycycline hyclate 100 mg capsule 100 mg PO BID Qty: 20 0RF prednisone 50 mg tablet 50 mg PO DAILY Qty: 5 0RF albuterol sulfate [Ventolin HFA] 90 mcg/actuation HFA aerosol inhaler 2 puff inhalation QID PRN (Reason: shortness of breath or wheezing) Qty: 8.5 0RF No Action lcrwtokdkium-jkigrghc-aohceh Tablet 1 tablet PO DAILY calcium citrate 250 mg calcium tablet 600 mg PO DAILY zinc sulfate [Orazinc] 50 mg zinc (220 mg) capsule 50 mg PO DAILY fluticasone propionate [Flonase Allergy Relief] 50 mcg/actuation spray,suspension 2 spray intranasal DAILY PRN Rx Instructions: administer into each nostril aspirin 81 mg tablet,delayed release (DR/EC) 81 mg PO DAILY cholecalciferol (vitamin D3) 125 mcg (5,000 unit) capsule 125 mcg PO DAILY Qty: 30 0RF benzonatate 100 mg capsule See Rx Instructions .ROUTE .COMPLEX Qty: 90 1RF Dose Instruction: Take 1 capsule by mouth three times daily as needed for cough Rx Instructions: Take 1 capsule by mouth three times daily as needed for cough potassium chloride 10 mEq capsule, extended release See Rx Instructions .ROUTE .COMPLEX Qty: 90 1RF Dose Instruction: Take 1 capsule by mouth once daily Rx Instructions: Take 1 capsule by mouth once daily Mounjaro 15 mg/0.5 mL pen injector 15 mg subcut WEEKLY Qty: 2 6RF furosemide 80 mg tablet See Rx Instructions .ROUTE .COMPLEX Qty: 90 0RF Dose Instruction: TAKE 1 TABLET BY MOUTH ONCE DAILY IN THE MORNING Rx Instructions: TAKE 1 TABLET BY MOUTH ONCE DAILY IN THE MORNING atorvastatin 20 mg tablet See Rx Instructions .ROUTE .COMPLEX Qty: 100 0RF Dose Instruction: Take 1 tablet by mouth once daily Rx Instructions: Take 1 tablet by mouth once daily Eliquis 2.5 mg tablet See Rx Instructions .ROUTE .COMPLEX Qty: 60 0RF Dose Instruction: Take 1 tablet by mouth twice daily Rx Instructions: Take 1 tablet by mouth twice daily carvedilol 12.5 mg tablet See Rx Instructions .ROUTE .COMPLEX Qty: 180 0RF Dose Instruction: TAKE 1 TABLET BY MOUTH TWICE DAILY. MUST ADMINISTER WITH A MEAL/FOOD Rx Instructions: TAKE 1 TABLET BY MOUTH TWICE DAILY. MUST ADMINISTER WITH A MEAL/FOOD Follow-up/Referrals: Paulo,Park Velarde PA-C [Primary Care Provider] - 1 Week Time of Disposition: 14:11
== END 2024-10-25 14:18 | disposition home or self-care (01) ==
PROVIDERS: Emergency Provider Nurse Practitioner Family; PCP Physician Assistant
DX: J18.9 Pneumonia, unspecified organism (principal); I48.91 Unspecified atrial fibrillation; I12.9 Hypertensive chronic kidney disease with stage 1 through stage 4 chronic kidney disease, or unspecified chronic kidney disease; E11.22 Type 2 diabetes mellitus with diabetic chronic kidney disease; N18.30 Chronic kidney disease, stage 3 unspecified
CPT/HCPCS: 99213; G0463

== ENCOUNTER 2025-04-29 13:56 | Emergency (ER) | payer MEDICARE, SELFPAY ==
--- NOTE | ~2025-04-29 | XR_ITS ---
EXAM/ PROCEDURE: XR tibia fibula LT 2V - 04/29/2025 14:20 CDT HISTORY: 85 years old Female with hematoma COMPARISON: None available TECHNIQUE: Two view(s) FINDINGS/ IMPRESSION: There are no fractures or dislocations.Joint spaces are within normal limits. Focal soft tissue swell ing around the mid leg. Reviewed, dictated and finalized at location A.
--- NOTE | ~2025-04-29 | CT_ITS ---
EXAMINATION: CTA LE LT DATE: 04/29/2025 14:58 INDICATION: Neck likely patient underwent aliquots presenting with large hematoma to left lower limb. TECHNIQUE: Computed tomographic angiography (CTA) of the abdominal, pelvis, and both lower extremitie s was performed with 150 mL Omnipaque 350 intravenous contrast. Automated exposure control and iterat andrade reconstruction technique were employed. The dose-length product was 635.99 mGy-cm. COMPARISON: None. FINDINGS: Small amount of nonhemodynamically significant atherosclerotic plaque along the left internal iliac a rtery. No evident plaque or stenosis along the visualized portion of the right internal iliac or bila teral external iliac arteries. Minimal scattered nonhemodynamically significant atherosclerotic plaqu e along the left common femoral and femoral arteries. There is a high bifurcation of the left poplite al artery appearing slightly above level of the knee joint line. There is three-vessel arterial runof f to the left ankle. There is a serpiginous active contrast extravasation within a 4.6 x 4.5 x 2.3 cm lenticular subcutaneous hematoma at the anterolateral aspect of the mid left calf. Prominent subcuta neous edema about the left lower leg beginning just below level of the knee and extending about the a nkle and over the dorsum of the foot. No fracture. 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 Additional moderate osteoarthrit is at the bilateral sacroiliac joints, the first metatarsophalangeal joint and several joints in mid and hindfoot. Mild osteoarthritis at the left hip, ankle and remaining joints in the left foot. Small left knee joint effusion. There is prominent fatty atrophy of the distal half of the left semimembra nosus muscle belly. The uterus is not identified and has likely been surgically resected. Visualized portion of the bladder and bowels are unremarkable. No free fluid in the pelvis. There is a partially visualized 6.6 x 2.9 cm ovoid region of macroscopic fat at the anterior left pelvic wall which could represent a lipoma or more likely an incompletely visualized ventral hernia. No pathologically enlar ged pelvic or left inguinal lymphadenopathy. IMPRESSION: 1. Active contrast intravasation within a 4.6 x 4.5 x 2.3 cm subcutaneous hematoma at the anterolate ral aspect of the mid left calf. Dr. Mullen discussed these findings with Dr. Bunch at 3:10 PM. Reviewed, dictated and finalized at location A. IMPRESSION: 1. Active contrast intravasation within a 4.6 x 4.5 x 2.3 cm subcutaneous faye domo at the anterolateral aspect of the mid left calf. Dr. Mullen discussed t hese findings with Dr. Bunch at 3:10 PM.
[2025-04-29 14:06] VITALS: BP 100/60; PULSE 106; RESP 18; TEMP 36.3; O2SAT 99
--- NOTE | 2025-04-29 14:15 | ED_ITS ---
HPI - Extremity Injury (Lower) General Chief Complaint: Extremity Injury, Lower Stated Complaint: left leg pain ,hit with a walker Time Seen by Provider: 04/29/25 15:13 Focused HPI: 85-year-old female with history of AFib on Eliquis presents to the ED with granddaughter at bedside for a left lower extremity injury that occurred prior to arrival. Patient's family member was attempting to break down her walker when they accidentally hit the patient's left tibia with a walker causing a large hematoma. Patient is reporting a large area of bruising and pain to her left lateral tibial region. She endorses chronic lower extremity edema that is unchanged from her baseline. GENERAL: Well-appearing, well-nourished, and in no acute distress. HEAD: Normocephalic, atraumatic. CHEST: Clear to auscultation. ?No respiratory distress. EXT: Large hematoma to the left mid lateral tibia with blue discoloration. Large amount of pitting edema to the ankle and foot. Palpable DP pulses. Extremity is pink and dry. Compartments are soft. HEART: Regular rate and rhythm.? NEURO: ?Alert and oriented x3. Patient screened in triage and initial orders placed.? ?Additional care and disposition to be based upon?diagnostic testing and treatment. History of Present Illness HPI Narrative: Agree with the above triage note Related Data Home Medications ?Medication ?Instructions ?Recorded ?Confirmed ?Last Taken ?Type hlavqgfvxxal-tbgghwff-cgnmaq tablet 1 tablet PO DAILY 11/29/19 02/18/25 Unknown History calcium citrate 600 mg PO DAILY 08/30/21 02/18/25 Unknown History zinc sulfate 50 mg zinc (220 mg) 50 mg PO DAILY 08/30/21 02/18/25 Unknown History capsule (Orazinc) aspirin 81 mg tablet,delayed 81 mg PO DAILY 11/08/22 02/18/25 Unknown History release fluticasone propionate 50 2 spray intranasal DAILY PRN 04/24/24 02/18/25 Unknown History mcg/actuation nasal spray,suspension (Flonase Allergy Relief) Allergies Allergy/AdvReac Type Severity Reaction Status Date / Time No Known Allergies Allergy Verified 02/18/25 11:48 PMFSH Past Medical History Medical History DVT (deep venous thrombosis) Afib Osteoporosis GERD (gastroesophageal reflux disease) Chronic edema Dyslipidemia Hypertension Insulin dependent type 2 diabetes mellitus Hemoglobin A1c was 6.9% in October 2018. Chronic kidney disease, stage 3 Baseline creatinine is around 1.40. Surgical History Surgical History Status post cataract extraction History of incisional hernia repair Status post cholecystectomy Status post hysterectomy Family History Family History Father Acute myocardial infarction Social History Social History Social History: The patient is and she lives in [place] with her of 60 years. 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 She designates her Vin as her surrogate decision maker and she wishes to be a full code. She is a lifelong nonsmoker and denies alcohol and drug abuse. Smoking status: Never smoker Second hand tobacco smoke exposure: No Alcohol intake: never Substance use: never Substance use type: does not use Do You Feel Safe in your Home?: Yes Lack of Transportation: No Lack of Food: Never True Current Housing: I Have Housing Concerned About Future Housing: No Difficulty Paying Gas/Electric Bills: No Difficulty Paying for Meds: No Currently Unemployed: No Education: High School Diploma/GED Difficulty w/ Childcare or Family Care: No Gender identity (if verbalized by the patient): Female Spiritual care concerns: No Agree to blood products: Yes Exam 2 Narrative: GENERAL: Well-appearing, well-nourished, and in no acute distress. HEAD: Normocephalic, atraumatic. EYES: EOMI. ENT: Nares clear, no rhinorrhea or epistaxis. Mucous membranes moist. NECK: Supple. CHEST: Clear to auscultation. No respiratory distress. HEART: Regular rate and rhythm. No murmur heard. Normal peripheral pulses. EXTREMITIES: Large hematoma to the left mid lateral tibia with blue discoloration. Large amount of pitting edema to the ankle and foot. Palpable DP pulses. Extremity is pink and dry. Compartments are soft. SKIN: Warm, dry, no rash. NEURO: No focal deficits. Alert and oriented x3 Course Vital Signs Vital signs: Vital Signs Temperature 97.4 F L 04/29/25 14:06 Pulse Rate 106 H 04/29/25 14:06 Respiratory Rate 18 04/29/25 14:06 Blood Pressure 100/60 04/29/25 14:06 Pulse Oximetry 99 04/29/25 14:06 Oxygen Delivery Room Air 04/29/25 14:06 Temperature 97.9 F 04/29/25 15:23 Pulse Rate 107 H 04/29/25 15:51 Respiratory Rate 18 04/29/25 15:51 Blood Pressure 104/59 L 04/29/25 15:51 Pulse Oximetry 98 04/29/25 15:51 Oxygen Delivery Room Air 04/29/25 14:06 MDM - Extremity Injury (Lower) MDM Narrative Medical decision making narrative: 85-year-old female who is chronically anticoagulated on Eliquis for AFib presents to the emergency department for left lower extremity hematoma that was obtained prior to arrival. See HPI for further history. Vitals with soft blood pressure 100/60 and mild tachycardia 106, however repeat blood pressure stable at 135/85 and tachycardia has resolved. Exam is notable for large hematoma to the anterior lateral tibia. Patient does have strong palpable DP pulses and her extremity is pink, warm and dry. Compartments are soft. Her lab work shows no leukocytosis or anemia. Her chemistry show chronic CKD. PTT within normal limits, PT mildly elevated at 17.5, INR is 1.5. X-ray of the tib-fib shows no acute osseous findings. CTA of the lower extremity shows active contrast extravasation within a 4.6 x 4.5 x 2.3 cm subcutaneous hematoma at the anterior lateral aspect of the mid left calf. Patient updated on results. She was given morphine for pain control. Plan to transfer to a trauma facility. Patient is requesting [facility] as her PCP is affiliated with [facility]. Discussed case with [facility] ED Dr. Bernard who accepts patient ED to ED. Lab Data 04/29/25 14:38 04/29/25 14:38 Labs: Lab Results 04/29/25 Range/Units 14:38 WBC 5.6 (4.5-10.0) K/mm3 RBC 4.20 (4.2-5.4) M/mm3 Hgb 12.0 (12.0-15.0) g/dL Hct 37.4 (37.0-47.0) % MCV 89.0 (80-100) fl MCH 28.6 (26-34) pg MCHC 32.1 (32-36) g/dl RDW 14.2 (11.5-14.5) % Plt Count 144 L (150-375) k/mm3 MPV 9.5 (7.4-10.4) fl Immature Gran % (Auto) 0.2 (0-0.5) % Neut % (Auto) 59.2 (45.5-73.1) % Lymph % (Auto) 24.3 (18.3-44.2) % [place] % (Auto) 9.5 H (2.6-8.5) % Eos % (Auto) 5.9 H (0-4.4) % Baso % (Auto) 0.9 (0.2-1.2) % Lymph # (Auto) 1.36 (0.9-3.2) K/mm3 [place] # (Auto) 0.5 (0.1-0.6) K/mm3 Eos # (Auto) 0.3 (0-0.3) K/mm3 Baso # (Auto) 0.1 (0.0-0.1) K/mm3 Abs Immat Gran (auto) 0.01 (0.00-0.031) K/mm3 Absolute Neuts (auto) 3.3 (1.3-6.7) K/mm3 Absolute Nucleated RBC 0.000 (0.0-0.012) K/mm3 Nucleated RBC % 0.0 (0.0-0.2) % PT 17.5 H (11.1-14.7) Seconds INR 1.5 APTT 27.9 (22.3-36.8) Seconds Sodium 140 (137-145) mmol/L Potassium 3.4 (3.4-5.0) mmol/L Chloride 105 (98-107) mmol/L Carbon Dioxide 25 (22-30) mmol/L Anion Gap 10 (4-12) mmol/L BUN 20 H (7-17) mg/dL Creatinine 1.51 H (0.7-1.0) mg/dL Estim Creat Clear Calc 22 ml/min Estimated GFR 33 L (59 - ) Glucose 124 H (65-110) mg/dL Calcium 10.0 (8.4-10.2) mg/dL Total Bilirubin 0.8 (0.2-1.3) mg/dL AST 28 (14-36) U/L ALT 15 (6-35) U/L Alkaline Phosphatase 61 (38-126) U/L Total Protein 6.0 L (6.3-8.2) g/dL Albumin 3.4 L (3.5-5.1) g/dL Critical Care Time Critical Care Time Critical Care Time: Yes Total Critical Care Time: 31 Discharge Plan Discharge Clinical Impression: Hematoma of left lower extremity Qualifiers: Encounter type: initial encounter Qualified Code(s): S80.12XA - Contusion of left lower leg, initial encounter Patient Disposition: Acute Care Hospital Condition: Stable Patient Language: Swiss Prescriptions: No Action doxycycline hyclate 100 mg capsule 100 mg PO BID Qty: 20 0RF albuterol sulfate [Ventolin HFA] 90 mcg/actuation HFA aerosol inhaler 2 puff inhalation QID PRN (Reason: shortness of breath or wheezing) Qty: 8.5 0RF ukeugcyjjhek-knrzgkje-oolveo Tablet 1 tablet PO DAILY calcium citrate 250 mg calcium tablet 600 mg PO DAILY zinc sulfate [Orazinc] 50 mg zinc (220 mg) capsule 50 mg PO DAILY fluticasone propionate [Flonase Allergy Relief] 50 mcg/actuation spray,suspension 2 spray intranasal DAILY PRN Rx Instructions: administer into each nostril aspirin 81 mg tablet,delayed release (DR/EC) 81 mg PO DAILY cholecalciferol (vitamin D3) 125 mcg (5,000 unit) capsule 125 mcg PO DAILY Qty: 30 0RF Mounjaro 15 mg/0.5 mL pen injector 15 mg subcut WEEKLY Qty: 2 6RF furosemide 80 mg tablet See Rx Instructions .ROUTE .COMPLEX Qty: 90 0RF Dose Instruction: TAKE 1 TABLET BY MOUTH ONCE DAILY IN THE MORNING Rx Instructions: TAKE 1 TABLET BY MOUTH ONCE DAILY IN THE MORNING atorvastatin 20 mg tablet See Rx Instructions .ROUTE .COMPLEX Qty: 100 0RF Dose Instruction: Take 1 tablet by mouth once daily Rx Instructions: Take 1 tablet by mouth once daily carvedilol 12.5 mg tablet See Rx Instructions .ROUTE .COMPLEX Qty: 180 0RF Dose Instruction: TAKE 1 TABLET BY MOUTH TWICE DAILY. MUST ADMINISTER WITH A MEAL/FOOD Rx Instructions: TAKE 1 TABLET BY MOUTH TWICE DAILY. MUST ADMINISTER WITH A MEAL/FOOD Eliquis 2.5 mg tablet See Rx Instructions .ROUTE .COMPLEX Qty: 60 1RF Dose Instruction: Take 1 tablet by mouth twice daily Rx Instructions: Take 1 tablet by mouth twice daily potassium chloride 10 mEq capsule, extended release See Rx Instructions .ROUTE .COMPLEX Qty: 90 1RF Dose Instruction: Take 1 capsule by mouth once daily Rx Instructions: Take 1 capsule by mouth once daily Follow-up/Referrals: UNKNOWN,DOCTOR [Primary Care Provider] -
[2025-04-29 14:54] LABS: Alanine Aminotransferase 15 U/L (6-35); Albumin Level 3.4 g/dL (3.5-5.1); Alkaline Phosphatase 61 U/L (38-126); Anion Gap 10 mmol/L (4-12); Aspartate Amino Transferase 28 U/L (14-36); Bilirubin,Total 0.8 mg/dL (0.2-1.3); Blood Urea Nitrogen 20 mg/dL (7-17); Carbon Dioxide 25 mmol/L (22-30); Chloride 105 mmol/L (98-107); Estimated CRCL calculation 22 ml/min; Estimated Glomerular Filt Rate 33; Glucose 124 mg/dL (65-110); Potassium 3.4 mmol/L (3.4-5.0); Sodium 140 mmol/L (137-145)
[2025-04-29 14:56] LABS: Basophils Absolute Auto 0.1 K/mm3 (0.0-0.1); Basophils Percent Auto 0.9 % (0.2-1.2); Eosinophils Absolute Auto 0.3 K/mm3 (0-0.3); Eosinophils Percent Auto 5.9 % (0-4.4); Hematocrit 37.4 % (37.0-47.0); Immature Granulocyte Absolute 0.01 K/mm3 (0.00-0.031); Immature Granulocyte Percent A 0.2 % (0-0.5); Lymphocytes Absolute Auto 1.36 K/mm3 (0.9-3.2); Lymphocytes Percent Auto 24.3 % (18.3-44.2); Mean Corpuscular HGB Conc 32.1 g/dl (32-36); Mean Corpuscular Hemoglobin 28.6 pg (26-34); Mean Platelet Volume 9.5 fl (7.4-10.4); Monocytes Absolute Auto 0.5 K/mm3 (0.1-0.6); Monocytes Percent Auto 9.5 % (2.6-8.5); Neutrophils Absolute Auto 3.3 K/mm3 (1.3-6.7); Neutrophils Percent Auto 59.2 % (45.5-73.1); Platelet Count Result 144 k/mm3 (150-375); Red Cell Distribution Width 14.2 % (11.5-14.5); White Blood Count 5.6 K/mm3 (4.5-10.0)
[2025-04-29 14:59] LABS: INR 1.5; Prothrombin Time 17.5 Seconds (11.1-14.7)
[2025-04-29 15:00] LABS: Partial Thromboplastin Time 27.9 Seconds (22.3-36.8)
[2025-04-29 15:22] VITALS: BP 135/85; PULSE 96; RESP 20; O2SAT 99
[2025-04-29 15:23] VITALS: BP 135/85; PULSE 93; RESP 18; TEMP 36.6; O2SAT 99
[2025-04-29] MEDS: MORPHINE SULFATE (*CRX) 4 MG/ML INJ IV PUSH (15:26)
[2025-04-29 15:51] VITALS: BP 104/59; PULSE 107; RESP 18; O2SAT 98
[2025-05-01 09:47] LABS: Estimated CRCL calculation 19 ml/min; Estimated Glomerular Filt Rate 29
== END 2025-04-29 16:28 | disposition short-term general hospital (02) ==
PROVIDERS: Emergency Provider Physician Assistant
DX: I48.91 Unspecified atrial fibrillation (principal); E11.22 Type 2 diabetes mellitus with diabetic chronic kidney disease; I12.9 Hypertensive chronic kidney disease with stage 1 through stage 4 chronic kidney disease, or unspecified chronic kidney disease; N18.30 Chronic kidney disease, stage 3 unspecified; E78.5 Hyperlipidemia, unspecified; M81.0 Age-related osteoporosis without current pathological fracture; Z86.718 Personal history of other venous thrombosis and embolism; Z90.49 Acquired absence of other specified parts of digestive tract; Z90.710 Acquired absence of both cervix and uterus; Z98.49 Cataract extraction status, unspecified eye; Z79.01 Long term (current) use of anticoagulants; Z79.82 Long term (current) use of aspirin; Z79.85 Long-term (current) use of injectable non-insulin antidiabetic drugs; Z79.899 Other long term (current) drug therapy; W22.8XXA Striking against or struck by other objects, initial encounter
CPT/HCPCS: 36415; 73590; 73706; 80053; 82565; 85025; 85610; 85730; 96374; 99285; J2270; Q9967